=== PATIENT | female | born 1985 | race Caucasian/White ===

== ENCOUNTER 2017-05-02 08:39 | Day surgery (SDC) | payer MEDICAID ==
[~2017-05-02] VITALS: Ht 144.8 cm; Wt 53.1 kg
[~2017-05-02 08:39] MED LIST: ACET325T47 PO; BENZ1TAB70 PO; BISA10SU PR; CARBL PO; DESM10SP2 PO; LEVE500T53 PO; LORA10TA7 GT; LORA1TAB3 PO; LURA40 PO; METO5SOL3 PO; OLAN7.5T2 PO; SODI44SP18 NASAL; VITAD1000 PO; [UNRECOGNIZED DRUG - CODE] PO
[2017-05-02] MEDS ORDERED: PROPOFOL 1% 20 ML VIAL IVP ONE (08:40)
[2017-05-02] MEDS ORDERED: LIDOCAINE HCL/PF 2% 5 ML VIAL IM ONE (08:40)
[2017-05-02] MEDS ORDERED: SODIUM CHLORIDE 0.9% 1,000 ML IV ONE ×2 (09:19→09:30)
== END 2017-05-02 11:50 | disposition home or self-care (01) ==
LOC: SURGERY 08:39
PROVIDERS: ATTEND Internal Medicine Gastroenterology
DX: K94.23 Gastrostomy malfunction (principal); K21.9 Gastro-esophageal reflux disease without esophagitis; F41.9 Anxiety disorder, unspecified; Z86.59 Personal history of other mental and behavioral disorders; Z88.8 Allergy status to other drugs, medicaments and biological substances; Z79.899 Other long term (current) drug therapy
CPT/HCPCS: 36415; 43246; 84703; J2704; J3490; J7030

== ENCOUNTER 2017-12-04 07:54 | Emergency (ER) | payer MEDICAID ==
[~2017-12-04] VITALS: Ht 149.9 cm; Wt 81.8 kg
[2017-12-04] MEDS ORDERED: SODIUM CHLORIDE 0.9% 1,000 ML IV ONE (08:45)
[2017-12-04] MEDS ORDERED: ONDANSETRON HCL 4 MG/2 ML VIAL IVP ONE (08:45)
[2017-12-04 09:27] LABS: BASOPHILS % (AUTO) 0.3 % (0.0-2.0); EOSINOPHILS % (AUTO) 0 % (1.0-6.0); HEMATOCRIT 41.7 % (36-46); HEMOGLOBIN 14.5 g/dL (12.0-16.0); LYMPHOCYTES # (AUTO) 1.2 K/uL (1.0-4.8); MEAN CORPUSCULAR HEMOGLOBIN 31.5 pg (26.0-34.0); MEAN CORPUSCULAR HGB CONC 34.8 G/dL (31.0-37.0); MEAN CORPUSCULAR VOLUME 90 fL (80-100); MONOCYTES # (AUTO) 0.9 K/uL (0.1-1.0); MONOCYTES % (AUTO) 3.9 % (2.0-9.0); NEUTROPHILS # (AUTO) 21.5 K/uL (1.8-7.7); PLATELET COUNT (AUTO) 325 K/uL (150-450); RED BLOOD CELL COUNT(AUTO) 4.61 MIL/uL (4.00-5.20); RED CELL DISTRIBUTION WIDTH 12.5 % (11.5-14.5)
[2017-12-04 09:29] LABS: NEUTROPHILS % (AUTO) 90.8 % (40.0-70.0)
[2017-12-04 09:36] LABS: ANION GAP 11 mmol/L (8-16); CALCIUM, TOTAL 9.5 mg/dL (8.8-10.5); CARBON DIOXIDE 26 mmol/L (22-29); CHLORIDE 96 mmol/L (98-107); CREATININE 0.81 mg/dL (0.60-1.30); GLOMERULAR FILTR. RATE CALC > 60 mL/min (>60); GLUCOSE,RANDOM 136 mg/dL (70-110); SODIUM SERUM 133 mmol/L (136-145); UREA NITROGEN, BLOOD 12 mg/dL (7-18)
[2017-12-04 09:47] LABS: ALANINE AMINOTRANSFERASE 45 U/L (12-78); ALBUMIN 4.3 g/dL (3.4-5.0); ALKALINE PHOSPHATASE 108 U/L (46-116); ASPARTATE AMINOTRANSFERASE 22 U/L (15-37); BILIRUBIN,TOTAL 0.4 mg/dL (0.1-1.0); HCG,QUANTITATIVE < 1 mIU/mL (0-6); LIPASE 144 U/L (73-393); TOTAL PROTEIN, SERUM 8.6 g/dL (6.4-8.2)
[2017-12-04] MEDS ORDERED: LORazepam 2 MG/ML VIAL IVP ONE (10:15)
[2017-12-04 11:21] LABS: APPEARANCE,URINE CLEAR (CLEAR); BILIRUBIN,URINE NEGATIVE (NEGATIVE); GLUCOSE, URINE (UA) 100 mg/dL (NEGATIVE); KETONES,URINE NEGATIVE (NEGATIVE); LEUKOCYTE ESTERASE ,URINE NEGATIVE (NEGATIVE); NITRATE,URINE NEGATIVE (NEGATIVE); OCCULT BLOOD,URINE NEGATIVE (NEGATIVE); PROTEIN,URINE NEGATIVE (NEGATIVE); UROBILINOGEN,URINE 0.2 mg/dL (<=1.0)
[2017-12-04 11:33] LABS: BACTERIA,URINE None Seen /HPF (None Seen); RBC,URINE None Seen /HPF (0-2); WBC,URINE 0-2 /HPF (0-5)
[2017-12-04 11:34] LABS: SQUAMOUS EPITHELIAL CELL,UR Few /LPF (None Seen)
[2017-12-04 12:46] VITALS: BP 116/71
== END 2017-12-04 13:05 | disposition home or self-care (01) ==
LOC: EMS 07:55
DX: D72.829 Elevated white blood cell count, unspecified (principal); R33.9 Retention of urine, unspecified; R53.81 Other malaise; R14.0 Abdominal distension (gaseous); R11.10 Vomiting, unspecified; Z88.8 Allergy status to other drugs, medicaments and biological substances
CPT/HCPCS: 36415; 51702; 74022; 74181; 80053; 81001; 83690; 84702; 85025; 96361; 96374; 96375; 99285; J2060; J2405; J7030

== ENCOUNTER 2018-11-08 23:15 | Inpatient (IN) | payer MEDICAID ==
[~2018-11-08] VITALS: Ht 154.9 cm; Wt 55.5 kg
[~2018-11-08 23:15] MED LIST changes: -ACET325T47 PO; -BISA10SU PR; +CHOL100018 PO; +CLOT15CR62 TP; +DDAV1 PO; -DESM10SP2 PO; +LEVO250 GT; +LORA-999 PO; -LORA1TAB3 PO; +OLAN5TAB2 PO; -OLAN7.5T2 PO; +OMEP20 PO; -SODI44SP18 NASAL; -VITAD1000 PO; -[UNRECOGNIZED DRUG - CODE] PO
[2018-11-08] MEDS ORDERED: LURA20TA PO (23:39)
[2018-11-09] MEDS ORDERED: 0.9% SODIUM CHLORIDE 10 ML SYRINGE IVP PRN (04:00)
[2018-11-09] MEDS ORDERED: PANTOPRAZOLE SODIUM 40 MG/VIAL IVP ONE (04:15)
[2018-11-09] MEDS ORDERED: SODIUM CHLORIDE 0.9% 1,600 ML IV ONE (04:15)
[2018-11-09] MEDS ORDERED: CefTRIAXone 1 GM/DEXTROSE 50 ML IV ONE (04:15)
[2018-11-09] MEDS ORDERED: ONDANSETRON HCL 4 MG/2 ML VIAL IVP ONE (04:15)
[2018-11-09 04:50] LABS: HEMATOCRIT 32.8 % (36-46); HEMOGLOBIN 11.3 g/dL (12.0-16.0); MEAN CORPUSCULAR HEMOGLOBIN 30.7 pg (26.0-34.0); MEAN CORPUSCULAR HGB CONC 34.5 G/dL (31.0-37.0); MEAN CORPUSCULAR VOLUME 89 fL (80-100); PLATELET COUNT (AUTO) 462 K/uL (150-450); RED BLOOD CELL COUNT(AUTO) 3.69 MIL/uL (4.00-5.20)
[2018-11-09 04:52] LABS: OCCULT BLOOD,GASTRIC FLUID POSITIVE (NEGATIVE)
[2018-11-09 05:09] LABS: BAND NEUTROPHILS % (MANUAL) 10 % (0-5); LYMPHOCYTES % (MANUAL) 4 % (22-44); MONOCYTES % (MANUAL) 1 % (2-9); SEGMENTED NEUTROPHILS % 85 % (40-70)
[2018-11-09 05:12] LABS: ALANINE AMINOTRANSFERASE 30 U/L (12-78); ALBUMIN 4.2 g/dL (3.4-5.0); ALKALINE PHOSPHATASE 110 U/L (46-116); ANION GAP 12 mmol/L (8-16); ASPARTATE AMINOTRANSFERASE 24 U/L (15-37); BILIRUBIN,TOTAL 0.3 mg/dL (0.1-1.0); CARBON DIOXIDE 22 mmol/L (22-29); CHLORIDE 96 mmol/L (98-107); CREATININE 0.87 mg/dL (0.60-1.30); GLOMERULAR FILTR. RATE CALC > 60 mL/min (>60); GLUCOSE,RANDOM 158 mg/dL (70-110); HCG,QUANTITATIVE < 1 mIU/mL (0-6); LACTIC ACID 2.9 mmol/L (0.4-2.0); POTASSIUM 4.2 mmol/L (3.5-5.1); SODIUM SERUM 130 mmol/L (136-145); TOTAL PROTEIN, SERUM 8.5 g/dL (6.4-8.2)
[2018-11-09] MEDS ORDERED: AZITHROMYCIN 500 MG/NS 250 ML IV ONE (05:15)
[2018-11-09] MEDS ORDERED: IOVERSOL 350 MG/ML 100 ML VIAL ONE (05:16)
[2018-11-09 05:19] LABS: UREA NITROGEN, BLOOD 15 mg/dL (7-18)
[2018-11-09 05:28] LABS: APPEARANCE,URINE CLEAR (CLEAR); BILIRUBIN,URINE NEGATIVE (NEGATIVE); GLUCOSE, URINE (UA) 100 mg/dL (NEGATIVE); KETONES,URINE NEGATIVE (NEGATIVE); LEUKOCYTE ESTERASE ,URINE NEGATIVE (NEGATIVE); NITRATE,URINE NEGATIVE (NEGATIVE); OCCULT BLOOD,URINE NEGATIVE (NEGATIVE); PH,URINE 7.5 (5.0-8.0); PROTEIN,URINE NEGATIVE (NEGATIVE); UROBILINOGEN,URINE 0.2 mg/dL (<=1.0)
[2018-11-09 05:31] LABS: BACTERIA,URINE None Seen /HPF (None Seen); RBC,URINE None Seen /HPF (0-2); SQUAMOUS EPITHELIAL CELL,UR Rare /LPF (None Seen); WBC,URINE 0-2 /HPF (0-5)
[2018-11-09] MEDS ORDERED: SODIUM CHLORIDE 0.9% 1,000 ML IV ONE ×3 (07:00→08:45)
[2018-11-09] MEDS ORDERED: MAGNESIUM HYDROXIDE SUSPENSION 30 ML UDCUP PO PRN (08:30)
[2018-11-09] MEDS: LevETIRAcetam 500 MG TABLET PEG SCH ×2 (09:24→22:17)
[2018-11-09] MEDS: CarBAMazepine 100 MG CHEWABLE TABLET PEG SCH ×2 (09:25→22:17)
[2018-11-09] MEDS: HEPARIN SODIUM,PORCINE 5,000 UNITS/ML VIAL SQ SCH ×2 (09:26→20:27)
[2018-11-09] MEDS: TAMSULOSIN HCL 0.4 MG CAPSULE PO SCH (10:04)
[2018-11-09] MEDS: FAMOTIDINE 20 MG TABLET PO SCH (10:04)
[2018-11-09] MEDS: DOCUSATE SODIUM 100 MG CAPSULE PO SCH ×2 (10:04→22:17)
[2018-11-09 16:00] VITALS: BP 124/81
[2018-11-09 20:13] VITALS: BP 145/89
[2018-11-09] MEDS: ACETAMINOPHEN 325 MG TABLET PO PRN (22:17)
[2018-11-09 23:35] VITALS: BP 150/76
[2018-11-10 05:23] VITALS: BP 120/90
[2018-11-10 06:18] LABS: BASOPHILS % (AUTO) 0.5 % (0.0-2.0); EOSINOPHILS % (AUTO) 0.8 % (1.0-6.0); HEMATOCRIT 34.8 % (36-46); HEMOGLOBIN 11.8 g/dL (12.0-16.0); LYMPHOCYTES # (AUTO) 2.3 K/uL (1.0-4.8); LYMPHOCYTES % (AUTO) 14.2 % (22.0-44.0); MEAN CORPUSCULAR HEMOGLOBIN 30.8 pg (26.0-34.0); MEAN CORPUSCULAR HGB CONC 33.9 G/dL (31.0-37.0); MEAN CORPUSCULAR VOLUME 91 fL (80-100); MONOCYTES # (AUTO) 0.9 K/uL (0.1-1.0); MONOCYTES % (AUTO) 5.6 % (2.0-9.0); NEUTROPHILS % (AUTO) 78.9 % (40.0-70.0); PLATELET COUNT (AUTO) 285 K/uL (150-450); RED BLOOD CELL COUNT(AUTO) 3.82 MIL/uL (4.00-5.20)
[2018-11-10 08:15] VITALS: BP 133/105
[2018-11-10] MEDS: CarBAMazepine 100 MG CHEWABLE TABLET PEG SCH ×2 (09:20→20:17)
[2018-11-10] MEDS: DOCUSATE SODIUM 100 MG CAPSULE PO SCH ×2 (09:20→20:17)
[2018-11-10] MEDS: TAMSULOSIN HCL 0.4 MG CAPSULE PO SCH (09:20)
[2018-11-10] MEDS: HEPARIN SODIUM,PORCINE 5,000 UNITS/ML VIAL SQ SCH ×2 (09:20→20:17)
[2018-11-10] MEDS: LevETIRAcetam 500 MG TABLET PEG SCH ×2 (09:20→20:17)
[2018-11-10] MEDS: FAMOTIDINE 20 MG TABLET PO SCH (09:20)
[2018-11-10] MEDS ORDERED: SODIUM CHLORIDE 0.9% 1,000 ML IV ONE ×2 (10:45→17:00)
[2018-11-10] MEDS ORDERED: METO-296 PO (11:01)
[2018-11-10 11:39] VITALS: BP 117/90
[2018-11-10] MEDS: CefTRIAXone 1 GM/DEXTROSE 50 ML IV SCH (12:27)
[2018-11-10] MEDS: AZITHROMYCIN 500 MG/NS 250 ML IV SCH (13:24)
[2018-11-10] MEDS ORDERED: BISACODYL 10 MG RECTAL RECTAL SUPPOSITORY PR PRN (15:45)
[2018-11-10 15:54] VITALS: BP 178/106
[2018-11-10 20:25] VITALS: BP 136/81
[2018-11-10] MEDS: ACETAMINOPHEN 325 MG TABLET PO PRN (20:37)
[2018-11-11] VITALS (7 sets, daily range): BP systolic 112–159; BP diastolic 51–103
[2018-11-11] MEDS: LevETIRAcetam 500 MG TABLET PEG SCH ×2 (08:05→21:30)
[2018-11-11] MEDS: TAMSULOSIN HCL 0.4 MG CAPSULE PO SCH (08:05)
[2018-11-11] MEDS: CarBAMazepine 100 MG CHEWABLE TABLET PEG SCH ×2 (08:05→21:30)
[2018-11-11] MEDS: DOCUSATE SODIUM 100 MG CAPSULE PO SCH ×2 (08:05→21:30)
[2018-11-11] MEDS: FAMOTIDINE 20 MG TABLET PO SCH (08:06)
[2018-11-11] MEDS: HEPARIN SODIUM,PORCINE 5,000 UNITS/ML VIAL SQ SCH ×2 (08:06→21:30)
[2018-11-11 09:05] LABS: BASOPHILS % (AUTO) 0.3 % (0.0-2.0); EOSINOPHILS % (AUTO) 2.9 % (1.0-6.0); HEMATOCRIT 30.5 % (36-46); HEMOGLOBIN 10.8 g/dL (12.0-16.0); LYMPHOCYTES # (AUTO) 2.5 K/uL (1.0-4.8); LYMPHOCYTES % (AUTO) 23.1 % (22.0-44.0); MEAN CORPUSCULAR HEMOGLOBIN 31.4 pg (26.0-34.0); MEAN CORPUSCULAR HGB CONC 35.3 G/dL (31.0-37.0); MEAN CORPUSCULAR VOLUME 89 fL (80-100); MONOCYTES # (AUTO) 0.5 K/uL (0.1-1.0); NEUTROPHILS # (AUTO) 7.4 K/uL (1.8-7.7); NEUTROPHILS % (AUTO) 68.7 % (40.0-70.0); PLATELET COUNT (AUTO) 248 K/uL (150-450); RED BLOOD CELL COUNT(AUTO) 3.42 MIL/uL (4.00-5.20); RED CELL DISTRIBUTION WIDTH 12.8 % (11.5-14.5)
[2018-11-11 09:15] LABS: ANION GAP 12 mmol/L (8-16); CALCIUM, TOTAL 8.5 mg/dL (8.8-10.5); CARBON DIOXIDE 25 mmol/L (22-29); CHLORIDE 113 mmol/L (98-107); CREATININE 0.53 mg/dL (0.60-1.30); GLOMERULAR FILTR. RATE CALC > 60 mL/min (>60); GLUCOSE,RANDOM 87 mg/dL (70-110); SODIUM SERUM 150 mmol/L (136-145); UREA NITROGEN, BLOOD 10 mg/dL (7-18)
[2018-11-11 09:19] LABS: POTASSIUM 2.8 mmol/L (3.5-5.1)
[2018-11-11] MEDS ORDERED: POTASSIUM CHLORIDE 20 MEQ ER TABLET GT PRN (09:45)
[2018-11-11] MEDS: DEXTROSE 5%-WATER 1,000 ML IV SCH (09:58)
[2018-11-11] MEDS: POTASSIUM CHL 10 MEQ/WATER 50 ML IV PRN ×3 (09:58→21:35)
[2018-11-11] MEDS: CefTRIAXone 1 GM/DEXTROSE 50 ML IV SCH (11:59)
[2018-11-11] MEDS: AZITHROMYCIN 500 MG/NS 250 ML IV SCH (12:54)
[2018-11-11] MEDS ORDERED: SODIUM CHLORIDE 0.9% 1,000 ML IV ONE ×2 (13:36→13:45)
[2018-11-11 14:58] LABS: ANION GAP 12 mmol/L (8-16); CALCIUM, TOTAL 8.2 mg/dL (8.8-10.5); CARBON DIOXIDE 26 mmol/L (22-29); CHLORIDE 112 mmol/L (98-107); CREATININE 0.58 mg/dL (0.60-1.30); GLOMERULAR FILTR. RATE CALC > 60 mL/min (>60); GLUCOSE,RANDOM 82 mg/dL (70-110); POTASSIUM 3.2 mmol/L (3.5-5.1); SODIUM SERUM 150 mmol/L (136-145); UREA NITROGEN, BLOOD 9 mg/dL (7-18)
[2018-11-11] MEDS: ALBUTEROL SULFATE 2.5 MG/0.5 ML NEB SOLUTION NEB PRN (19:55)
[2018-11-11] MEDS: IPRATROPIUM BROMIDE 0.5 MG/2.5 ML NEB SOLUTION NEB PRN (19:55)
[2018-11-11] MEDS: ACETAMINOPHEN 325 MG TABLET PO PRN (21:30)
[2018-11-11] MEDS: LORazepam 2 MG/ML VIAL IVP PRN (21:34)
[2018-11-12] MEDS: POTASSIUM CHL 10 MEQ/WATER 50 ML IV PRN (05:59)
[2018-11-12 06:12] VITALS: BP 149/98
[2018-11-12 08:23] VITALS: BP 141/102
[2018-11-12] MEDS: LevETIRAcetam 500 MG TABLET PEG SCH ×2 (08:36→20:22)
[2018-11-12] MEDS: TAMSULOSIN HCL 0.4 MG CAPSULE PO SCH (08:36)
[2018-11-12] MEDS: DOCUSATE SODIUM 100 MG CAPSULE PO SCH ×2 (08:36→20:22)
[2018-11-12] MEDS: CarBAMazepine 100 MG CHEWABLE TABLET PEG SCH ×2 (08:36→20:21)
[2018-11-12] MEDS: FAMOTIDINE 20 MG TABLET PO SCH (08:36)
[2018-11-12] MEDS: DEXTROSE 5%-WATER 1,000 ML IV SCH (08:37)
[2018-11-12] MEDS: HEPARIN SODIUM,PORCINE 5,000 UNITS/ML VIAL SQ SCH ×2 (08:37→20:22)
[2018-11-12] MEDS: IPRATROPIUM BROMIDE 0.5 MG/2.5 ML NEB SOLUTION NEB PRN (09:00)
[2018-11-12] MEDS: ALBUTEROL SULFATE 2.5 MG/0.5 ML NEB SOLUTION NEB PRN (09:00)
[2018-11-12 10:21] LABS: BASOPHILS % (AUTO) 0.3 % (0.0-2.0); EOSINOPHILS % (AUTO) 1.6 % (1.0-6.0); HEMATOCRIT 30.3 % (36-46); HEMOGLOBIN 10.9 g/dL (12.0-16.0); LYMPHOCYTES # (AUTO) 2.8 K/uL (1.0-4.8); LYMPHOCYTES % (AUTO) 19.6 % (22.0-44.0); MEAN CORPUSCULAR VOLUME 89 fL (80-100); MONOCYTES # (AUTO) 0.6 K/uL (0.1-1.0); MONOCYTES % (AUTO) 3.8 % (2.0-9.0); NEUTROPHILS # (AUTO) 10.7 K/uL (1.8-7.7); NEUTROPHILS % (AUTO) 74.7 % (40.0-70.0); PLATELET COUNT (AUTO) 243 K/uL (150-450); RED BLOOD CELL COUNT(AUTO) 3.41 MIL/uL (4.00-5.20); RED CELL DISTRIBUTION WIDTH 12.9 % (11.5-14.5)
[2018-11-12 10:33] LABS: ANION GAP 8 mmol/L (8-16); CALCIUM, TOTAL 8.8 mg/dL (8.8-10.5); CARBON DIOXIDE 28 mmol/L (22-29); CHLORIDE 108 mmol/L (98-107); CREATININE 0.62 mg/dL (0.60-1.30); GLOMERULAR FILTR. RATE CALC > 60 mL/min (>60); GLUCOSE,RANDOM 106 mg/dL (70-110); SODIUM SERUM 144 mmol/L (136-145); UREA NITROGEN, BLOOD 7 mg/dL (7-18)
[2018-11-12 10:34] LABS: POTASSIUM 2.9 mmol/L (3.5-5.1)
[2018-11-12 11:24] VITALS: BP 123/83
[2018-11-12] MEDS ORDERED: PROPOFOL 1% 20 ML VIAL IVP ONE (12:00)
[2018-11-12] MEDS: CefTRIAXone 1 GM/DEXTROSE 50 ML IV SCH ×2 (16:57→18:50)
[2018-11-12] MEDS: AZITHROMYCIN 500 MG/NS 250 ML IV SCH ×2 (16:57→19:50)
[2018-11-12 19:52] VITALS: BP 161/93
[2018-11-12] MEDS: ACETAMINOPHEN 325 MG TABLET PO PRN (20:21)
[2018-11-12] MEDS: LORazepam 2 MG/ML VIAL IVP PRN (21:12)
[2018-11-12 23:49] VITALS: BP 135/84
[2018-11-13 04:25] VITALS: BP 155/81
[2018-11-13] MEDS: TAMSULOSIN HCL 0.4 MG CAPSULE PO SCH (08:33)
[2018-11-13] MEDS: FAMOTIDINE 20 MG TABLET PO SCH (08:33)
[2018-11-13] MEDS: LevETIRAcetam 500 MG TABLET PEG SCH ×2 (08:33→20:22)
[2018-11-13] MEDS: DOCUSATE SODIUM 100 MG CAPSULE PO SCH ×2 (08:33→20:22)
[2018-11-13] MEDS: CarBAMazepine 100 MG CHEWABLE TABLET PEG SCH ×2 (08:33→20:22)
[2018-11-13] MEDS: HEPARIN SODIUM,PORCINE 5,000 UNITS/ML VIAL SQ SCH ×2 (08:33→20:22)
[2018-11-13] MEDS: ACETAMINOPHEN 325 MG TABLET PO PRN (08:35)
[2018-11-13 09:29] LABS: BASOPHILS % (AUTO) 0.5 % (0.0-2.0); EOSINOPHILS % (AUTO) 3.7 % (1.0-6.0); HEMATOCRIT 34.7 % (36-46); LYMPHOCYTES # (AUTO) 2.1 K/uL (1.0-4.8); LYMPHOCYTES % (AUTO) 14.8 % (22.0-44.0); MEAN CORPUSCULAR HEMOGLOBIN 31.3 pg (26.0-34.0); MEAN CORPUSCULAR HGB CONC 34.5 G/dL (31.0-37.0); MEAN CORPUSCULAR VOLUME 91 fL (80-100); MONOCYTES # (AUTO) 0.7 K/uL (0.1-1.0); MONOCYTES % (AUTO) 4.7 % (2.0-9.0); NEUTROPHILS # (AUTO) 10.6 K/uL (1.8-7.7); NEUTROPHILS % (AUTO) 76.3 % (40.0-70.0); PLATELET COUNT (AUTO) 275 K/uL (150-450); RED BLOOD CELL COUNT(AUTO) 3.82 MIL/uL (4.00-5.20); RED CELL DISTRIBUTION WIDTH 12.9 % (11.5-14.5)
[2018-11-13 09:38] LABS: ANION GAP 8 mmol/L (8-16); CARBON DIOXIDE 29 mmol/L (22-29); CHLORIDE 107 mmol/L (98-107); CREATININE 0.56 mg/dL (0.60-1.30); GLOMERULAR FILTR. RATE CALC > 60 mL/min (>60); GLUCOSE,RANDOM 106 mg/dL (70-110); POTASSIUM 3.6 mmol/L (3.5-5.1); SODIUM SERUM 144 mmol/L (136-145); UREA NITROGEN, BLOOD 11 mg/dL (7-18)
[2018-11-13] MEDS ORDERED: 0.9% SODIUM CHLORIDE 5 ML NEB SOLUTION NEB ONE (09:45)
[2018-11-13] MEDS: IPRATROPIUM BROMIDE 0.5 MG/2.5 ML NEB SOLUTION NEB PRN ×2 (09:49→22:12)
[2018-11-13] MEDS: ALBUTEROL SULFATE 2.5 MG/0.5 ML NEB SOLUTION NEB PRN ×2 (09:50→22:12)
[2018-11-13 10:20] VITALS: BP 147/117
[2018-11-13 10:22] VITALS: BP 147/95
[2018-11-13 11:23] VITALS: BP 141/87
[2018-11-13 15:30] VITALS: BP 139/86
[2018-11-13] MEDS: CefTRIAXone 1 GM/DEXTROSE 50 ML IV SCH (17:46)
[2018-11-13] MEDS: AZITHROMYCIN 500 MG/NS 250 ML IV SCH (17:46)
[2018-11-13] MEDS ORDERED: CefTRIAXone SODIUM 1 GM/VIAL IM SCH (19:00)
[2018-11-13 19:27] VITALS: BP 140/84
[2018-11-14 00:19] VITALS: BP 122/69
[2018-11-14 04:01] VITALS: BP 118/88
[2018-11-14 07:50] VITALS: BP 119/82
[2018-11-14] MEDS: LevETIRAcetam 500 MG TABLET PEG SCH ×2 (09:24→20:47)
[2018-11-14] MEDS: DOCUSATE SODIUM 100 MG CAPSULE PO SCH ×2 (09:25→20:47)
[2018-11-14] MEDS: TAMSULOSIN HCL 0.4 MG CAPSULE PO SCH (09:25)
[2018-11-14] MEDS: FAMOTIDINE 20 MG TABLET PO SCH (09:25)
[2018-11-14] MEDS: CarBAMazepine 100 MG CHEWABLE TABLET PEG SCH ×2 (09:25→20:47)
[2018-11-14] MEDS: HEPARIN SODIUM,PORCINE 5,000 UNITS/ML VIAL SQ SCH ×2 (09:26→20:48)
[2018-11-14 10:55] VITALS: BP 133/98
[2018-11-14] MEDS: AZITHROMYCIN 500 MG/NS 250 ML IV SCH ×2 (12:14→13:00)
[2018-11-14] MEDS: AZITHROMYCIN 250 MG TABLET PO SCH (15:32)
[2018-11-14 15:50] VITALS: BP 149/93
[2018-11-14 20:06] VITALS: BP 143/93
[2018-11-14] MEDS: CefTRIAXone SODIUM 1 GM/VIAL IM SCH (20:50)
[2018-11-14] MEDS: LIDOCAINE/PF 1% 2 ML VIAL IM SCH (20:50)
[2018-11-14] MEDS: ACETAMINOPHEN 325 MG TABLET PO PRN (23:46)
[2018-11-15 00:04] VITALS: BP 133/99
[2018-11-15 05:12] VITALS: BP 156/90
[2018-11-15 07:30] VITALS: BP 142/84
[2018-11-15] MEDS: TAMSULOSIN HCL 0.4 MG CAPSULE PO SCH (08:57)
[2018-11-15] MEDS: CarBAMazepine 100 MG CHEWABLE TABLET PEG SCH ×2 (08:57→21:46)
[2018-11-15] MEDS: AZITHROMYCIN 250 MG TABLET PO SCH (08:57)
[2018-11-15] MEDS: FAMOTIDINE 20 MG TABLET PO SCH (08:57)
[2018-11-15] MEDS: DOCUSATE SODIUM 100 MG CAPSULE PO SCH ×2 (08:58→21:47)
[2018-11-15] MEDS: LevETIRAcetam 500 MG TABLET PEG SCH ×2 (08:58→21:47)
[2018-11-15] MEDS: HEPARIN SODIUM,PORCINE 5,000 UNITS/ML VIAL SQ SCH ×2 (08:58→21:47)
[2018-11-15 10:50] VITALS: BP 136/88
[2018-11-15] MEDS: ALBUTEROL SULFATE 2.5 MG/0.5 ML NEB SOLUTION NEB PRN (11:57)
[2018-11-15] MEDS: IPRATROPIUM BROMIDE 0.5 MG/2.5 ML NEB SOLUTION NEB PRN (11:57)
[2018-11-15 15:06] LABS: BASOPHILS % (AUTO) 0.7 % (0.0-2.0); EOSINOPHILS % (AUTO) 3.4 % (1.0-6.0); HEMATOCRIT 38.9 % (36-46); HEMOGLOBIN 13.1 g/dL (12.0-16.0); LYMPHOCYTES % (AUTO) 25.2 % (22.0-44.0); MEAN CORPUSCULAR HEMOGLOBIN 30.9 pg (26.0-34.0); MEAN CORPUSCULAR HGB CONC 33.7 G/dL (31.0-37.0); MEAN CORPUSCULAR VOLUME 92 fL (80-100); MONOCYTES # (AUTO) 0.7 K/uL (0.1-1.0); MONOCYTES % (AUTO) 5.8 % (2.0-9.0); NEUTROPHILS # (AUTO) 7.8 K/uL (1.8-7.7); NEUTROPHILS % (AUTO) 64.9 % (40.0-70.0); PLATELET COUNT (AUTO) 332 K/uL (150-450); RED BLOOD CELL COUNT(AUTO) 4.25 MIL/uL (4.00-5.20); RED CELL DISTRIBUTION WIDTH 13.2 % (11.5-14.5)
[2018-11-15 15:18] VITALS: BP 142/82
[2018-11-15 15:24] LABS: ANION GAP 9 mmol/L (8-16); CALCIUM, TOTAL 9.4 mg/dL (8.8-10.5); CARBON DIOXIDE 27 mmol/L (22-29); CHLORIDE 105 mmol/L (98-107); CREATININE 0.52 mg/dL (0.60-1.30); GLOMERULAR FILTR. RATE CALC > 60 mL/min (>60); GLUCOSE,RANDOM 108 mg/dL (70-110); POTASSIUM 4.1 mmol/L (3.5-5.1); SODIUM SERUM 141 mmol/L (136-145); UREA NITROGEN, BLOOD 18 mg/dL (7-18)
[2018-11-15 15:28] LABS: ALANINE AMINOTRANSFERASE 78 U/L (12-78); ALBUMIN 3.9 g/dL (3.4-5.0); ALKALINE PHOSPHATASE 96 U/L (46-116); ASPARTATE AMINOTRANSFERASE 73 U/L (15-37); BILIRUBIN,TOTAL 0.3 mg/dL (0.1-1.0)
[2018-11-15 20:16] VITALS: BP 111/91
[2018-11-15] MEDS: LIDOCAINE/PF 1% 2 ML VIAL IM SCH (21:47)
[2018-11-15] MEDS: CefTRIAXone SODIUM 1 GM/VIAL IM SCH (21:47)
[2018-11-16] VITALS (7 sets, daily range): BP systolic 119–150; BP diastolic 85–96
[2018-11-16 07:27] LABS: BASOPHILS % (AUTO) 0.6 % (0.0-2.0); EOSINOPHILS % (AUTO) 2.9 % (1.0-6.0); HEMATOCRIT 39.2 % (36-46); HEMOGLOBIN 13.3 g/dL (12.0-16.0); LYMPHOCYTES # (AUTO) 2.8 K/uL (1.0-4.8); LYMPHOCYTES % (AUTO) 26.7 % (22.0-44.0); MEAN CORPUSCULAR HEMOGLOBIN 31.3 pg (26.0-34.0); MEAN CORPUSCULAR VOLUME 92 fL (80-100); MONOCYTES # (AUTO) 0.6 K/uL (0.1-1.0); MONOCYTES % (AUTO) 6.1 % (2.0-9.0); NEUTROPHILS # (AUTO) 6.8 K/uL (1.8-7.7); NEUTROPHILS % (AUTO) 63.7 % (40.0-70.0); PLATELET COUNT (AUTO) 355 K/uL (150-450); RED BLOOD CELL COUNT(AUTO) 4.26 MIL/uL (4.00-5.20); RED CELL DISTRIBUTION WIDTH 13.6 % (11.5-14.5)
[2018-11-16 07:43] LABS: ALANINE AMINOTRANSFERASE 105 U/L (12-78); ALBUMIN 3.9 g/dL (3.4-5.0); ALKALINE PHOSPHATASE 98 U/L (46-116); ANION GAP 9 mmol/L (8-16); ASPARTATE AMINOTRANSFERASE 74 U/L (15-37); BILIRUBIN,TOTAL 0.3 mg/dL (0.1-1.0); CALCIUM, TOTAL 9.5 mg/dL (8.8-10.5); CARBON DIOXIDE 28 mmol/L (22-29); CHLORIDE 104 mmol/L (98-107); CREATININE 0.57 mg/dL (0.60-1.30); GLOMERULAR FILTR. RATE CALC > 60 mL/min (>60); GLUCOSE,RANDOM 91 mg/dL (70-110); POTASSIUM 3.9 mmol/L (3.5-5.1); SODIUM SERUM 141 mmol/L (136-145); TOTAL PROTEIN, SERUM 8.2 g/dL (6.4-8.2)
[2018-11-16 07:57] LABS: UREA NITROGEN, BLOOD 21 mg/dL (7-18)
[2018-11-16] MEDS: FAMOTIDINE 20 MG TABLET PO SCH (09:18)
[2018-11-16] MEDS: TAMSULOSIN HCL 0.4 MG CAPSULE PO SCH (09:18)
[2018-11-16] MEDS: LevETIRAcetam 500 MG TABLET PEG SCH ×2 (09:18→20:04)
[2018-11-16] MEDS: AZITHROMYCIN 250 MG TABLET PO SCH (09:18)
[2018-11-16] MEDS: CarBAMazepine 100 MG CHEWABLE TABLET PEG SCH ×2 (09:18→20:04)
[2018-11-16] MEDS: DOCUSATE SODIUM 100 MG CAPSULE PO SCH ×2 (09:19→20:04)
[2018-11-16] MEDS: HEPARIN SODIUM,PORCINE 5,000 UNITS/ML VIAL SQ SCH ×2 (09:19→20:03)
[2018-11-16] MEDS: CefTRIAXone SODIUM 1 GM/VIAL IM SCH (20:03)
[2018-11-16] MEDS: LIDOCAINE/PF 1% 2 ML VIAL IM SCH (20:03)
[2018-11-17 05:37] VITALS: BP 145/94
[2018-11-17 06:24] LABS: BASOPHILS % (AUTO) 0.6 % (0.0-2.0); EOSINOPHILS % (AUTO) 2.4 % (1.0-6.0); HEMATOCRIT 39.9 % (36-46); HEMOGLOBIN 13.7 g/dL (12.0-16.0); LYMPHOCYTES # (AUTO) 3.1 K/uL (1.0-4.8); LYMPHOCYTES % (AUTO) 29.4 % (22.0-44.0); MEAN CORPUSCULAR HEMOGLOBIN 31.3 pg (26.0-34.0); MEAN CORPUSCULAR HGB CONC 34.3 G/dL (31.0-37.0); MEAN CORPUSCULAR VOLUME 92 fL (80-100); MONOCYTES # (AUTO) 0.7 K/uL (0.1-1.0); MONOCYTES % (AUTO) 6.6 % (2.0-9.0); NEUTROPHILS # (AUTO) 6.5 K/uL (1.8-7.7); PLATELET COUNT (AUTO) 390 K/uL (150-450); RED BLOOD CELL COUNT(AUTO) 4.36 MIL/uL (4.00-5.20); RED CELL DISTRIBUTION WIDTH 13.7 % (11.5-14.5)
[2018-11-17 06:44] LABS: ALANINE AMINOTRANSFERASE 102 U/L (12-78); ALKALINE PHOSPHATASE 100 U/L (46-116); ANION GAP 11 mmol/L (8-16); ASPARTATE AMINOTRANSFERASE 51 U/L (15-37); BILIRUBIN,TOTAL 0.3 mg/dL (0.1-1.0); CALCIUM, TOTAL 9.7 mg/dL (8.8-10.5); CARBON DIOXIDE 27 mmol/L (22-29); CHLORIDE 103 mmol/L (98-107); CREATININE 0.51 mg/dL (0.60-1.30); GLOMERULAR FILTR. RATE CALC > 60 mL/min (>60); GLUCOSE,RANDOM 105 mg/dL (70-110); POTASSIUM 4.3 mmol/L (3.5-5.1); SODIUM SERUM 141 mmol/L (136-145); TOTAL PROTEIN, SERUM 8.3 g/dL (6.4-8.2); UREA NITROGEN, BLOOD 23 mg/dL (7-18)
[2018-11-17 07:40] VITALS: BP 126/84
[2018-11-17 08:01] LABS: GLUCOMETER DEV NAME(LOC) 5S.1; GLUCOSE,POINT OF CARE 87 MG/DL (70-110)
[2018-11-17] MEDS: FAMOTIDINE 20 MG TABLET PO SCH (08:59)
[2018-11-17] MEDS: HEPARIN SODIUM,PORCINE 5,000 UNITS/ML VIAL SQ SCH (08:59)
[2018-11-17] MEDS: AZITHROMYCIN 250 MG TABLET PO SCH (08:59)
[2018-11-17] MEDS: LevETIRAcetam 500 MG TABLET PEG SCH (08:59)
[2018-11-17] MEDS: CarBAMazepine 100 MG CHEWABLE TABLET PEG SCH (09:00)
[2018-11-17] MEDS: DOCUSATE SODIUM 100 MG CAPSULE PO SCH (09:00)
[2018-11-17] MEDS: TAMSULOSIN HCL 0.4 MG CAPSULE PO SCH (09:00)
[2018-11-17] MEDS ORDERED: LEVO750T21 PO (14:46)
[2018-11-18 21:46] LABS: GLUCOMETER DEV NAME(LOC) 5S.2A; GLUCOSE,POINT OF CARE 123 MG/DL (70-110)
[2018-11-18 21:46] LABS: GLUCOMETER DEV NAME(LOC) 5S.2A; GLUCOSE,POINT OF CARE 93 MG/DL (70-110)
== END 2018-11-17 15:15 | disposition home or self-care (01) | DRG 720 ==
LOC: EMS 23:16 → ICU 11-09 12:12 → 5S 11-09 13:09
PROVIDERS: ADMIT Internal Medicine; ATTEND Internal Medicine
PROC: 0D20XUZ Change Feeding Device in Upper Intestinal Tract, External Approach (ICD-10-PCS; principal; 2018-11-11 14:45)
DX: A41.9 Sepsis, unspecified organism (principal); E87.0 Hyperosmolality and hypernatremia; J18.9 Pneumonia, unspecified organism; K92.2 Gastrointestinal hemorrhage, unspecified; E87.1 Hypo-osmolality and hyponatremia; R33.9 Retention of urine, unspecified; E87.6 Hypokalemia; Z88.8 Allergy status to other drugs, medicaments and biological substances; G40.909 Epilepsy, unspecified, not intractable, without status epilepticus; G80.9 Cerebral palsy, unspecified; N31.2 Flaccid neuropathic bladder, not elsewhere classified; R13.10 Dysphagia, unspecified; R09.02 Hypoxemia
CPT/HCPCS: 71250; 74177; 82271; 83605; 84132; 86850; 86900; 86901; 87040; 87081; 87205; 93005; 94640; 94667; 96365; 96375; 99291; C9113; J0456; J0696; J1644; J2060; J2405; J2704; J3480; J3490; J7030; J7060

== ENCOUNTER 2019-07-15 08:25 | Inpatient (IN) | payer MEDICAID ==
[~2019-07-15] VITALS: Ht 157.5 cm; Wt 55.0 kg
[~2019-07-15 08:25] MED LIST changes: +CLOT15CR23 TP; -CLOT15CR62 TP; -LEVO250 GT; +LEVO750T21 PO; -LORA10TA7 GT; +LORA10TA7 PO; +LURA20TA PO; -LURA40 PO; +METO-296 PO; -METO5SOL3 PO
[2019-07-15 09:34] LABS: BASOPHILS % (AUTO) 0.2 % (0.0-2.0); EOSINOPHILS % (AUTO) 0.1 % (1.0-6.0); HEMATOCRIT 42.1 % (36-46); HEMOGLOBIN 14.5 g/dL (12.0-16.0); LYMPHOCYTES # (AUTO) 0.8 K/uL (1.0-4.8); LYMPHOCYTES % (AUTO) 3.3 % (22.0-44.0); MEAN CORPUSCULAR HEMOGLOBIN 30.8 pg (26.0-34.0); MEAN CORPUSCULAR HGB CONC 34.3 G/dL (31.0-37.0); MEAN CORPUSCULAR VOLUME 90 fL (80-100); MONOCYTES # (AUTO) 0.7 K/uL (0.1-1.0); MONOCYTES % (AUTO) 2.9 % (2.0-9.0); NEUTROPHILS % (AUTO) 93.5 % (40.0-70.0); PLATELET COUNT (AUTO) 351 K/uL (150-450); RED CELL DISTRIBUTION WIDTH 12.9 % (11.5-14.5)
[2019-07-15 09:42] LABS: ANION GAP 14 mmol/L (8-16); CALCIUM, TOTAL 9.9 mg/dL (8.8-10.5); CARBON DIOXIDE 25 mmol/L (22-29); CHLORIDE 98 mmol/L (98-107); CREATININE 0.77 mg/dL (0.60-1.30); GLOMERULAR FILTR. RATE CALC > 60 mL/min (>60); GLUCOSE,RANDOM 133 mg/dL (70-110); SODIUM SERUM 137 mmol/L (136-145); UREA NITROGEN, BLOOD 12 mg/dL (7-18)
[2019-07-15 09:52] LABS: LACTIC ACID 2.7 mmol/L (0.4-2.0)
[2019-07-15 09:55] LABS: ALANINE AMINOTRANSFERASE 33 U/L (12-78); ALBUMIN 4.7 g/dL (3.4-5.0); ALKALINE PHOSPHATASE 114 U/L (46-116); ASPARTATE AMINOTRANSFERASE 17 U/L (15-37); BILIRUBIN,TOTAL 0.4 mg/dL (0.1-1.0); HCG,QUANTITATIVE < 1 mIU/mL (0-6); TOTAL PROTEIN, SERUM 8.9 g/dL (6.4-8.2)
[2019-07-15] MEDS ORDERED: DESM0.1T23 PO (10:06)
[2019-07-15] MEDS ORDERED: SODIUM CHLORIDE 0.9% 1,650 ML IV ONE (10:15)
[2019-07-15] MEDS: PIPERACILLIN/TAZO 3.375 GM/D5W 50 ML IV SCH ×3 (11:02→23:39)
[2019-07-15] MEDS ORDERED: VANCOMYCIN HCL 1 GM/D5% WATER 200 ML IV ONE (11:15)
[2019-07-15] MEDS ORDERED: ACETAMINOPHEN 325 MG TABLET PO PRN (11:30)
[2019-07-15] MEDS ORDERED: ONDANSETRON HCL 4 MG/2 ML VIAL IVP PRN ×2 (11:30)
[2019-07-15] MEDS ORDERED: 0.9% SODIUM CHLORIDE 10 ML SYRINGE IVP PRN ×2 (11:30)
[2019-07-15] MEDS ORDERED: IPRATROPIUM BROMIDE 0.5 MG/2.5 ML NEB SOLUTION NEB PRN (11:30)
[2019-07-15] MEDS ORDERED: ALBUTEROL SULFATE 2.5 MG/0.5 ML NEB SOLUTION NEB PRN (11:30)
[2019-07-15 14:32] VITALS: BP 135/85
[2019-07-15] MEDS: UDCUP PO SCH ×2 (16:15→20:53)
[2019-07-15] MEDS: CARBAMAZEPINE 200 MG/10 ML PO SCH ×2 (16:15→20:53)
[2019-07-15] MEDS: SODIUM CHLORIDE 0.9% 1,000 ML IV SCH ×2 (16:16→22:26)
[2019-07-15 16:40] VITALS: BP 140/91
[2019-07-15] MEDS: PANTOPRAZOLE SODIUM 40 MG/VIAL IVP SCH (19:09)
[2019-07-15 19:54] VITALS: BP 128/68
[2019-07-15] MEDS: HEPARIN SODIUM,PORCINE 5,000 UNITS/ML VIAL SQ SCH (20:52)
[2019-07-15] MEDS: ACETAMINOPHEN 325 MG TABLET PO PRN (20:53)
[2019-07-15] MEDS: BENZTROPINE MESYLATE 1 MG TABLET PO SCH (20:53)
[2019-07-15] MEDS: LevETIRAcetam 500 MG TABLET PO SCH (20:53)
[2019-07-15] MEDS: METOCLOPRAMIDE HCL 10 MG TABLET PO SCH (22:22)
[2019-07-15 23:45] VITALS: BP 98/52
[2019-07-16] MEDS: PIPERACILLIN/TAZO 3.375 GM/D5W 50 ML IV SCH ×4 (04:04→23:03)
[2019-07-16 04:11] VITALS: BP 110/70
[2019-07-16] MEDS: SODIUM CHLORIDE 0.9% 1,000 ML IV SCH (07:30)
[2019-07-16 07:37] LABS: BASOPHILS % (AUTO) 0.2 % (0.0-2.0); EOSINOPHILS % (AUTO) 2.3 % (1.0-6.0); HEMATOCRIT 37.1 % (36-46); HEMOGLOBIN 12.3 g/dL (12.0-16.0); LYMPHOCYTES # (AUTO) 2.7 K/uL (1.0-4.8); LYMPHOCYTES % (AUTO) 14.7 % (22.0-44.0); MEAN CORPUSCULAR HEMOGLOBIN 30.4 pg (26.0-34.0); MEAN CORPUSCULAR HGB CONC 33.3 G/dL (31.0-37.0); MEAN CORPUSCULAR VOLUME 92 fL (80-100); MONOCYTES # (AUTO) 1.3 K/uL (0.1-1.0); MONOCYTES % (AUTO) 6.9 % (2.0-9.0); NEUTROPHILS # (AUTO) 13.9 K/uL (1.8-7.7); NEUTROPHILS % (AUTO) 75.9 % (40.0-70.0); PLATELET COUNT (AUTO) 310 K/uL (150-450); RED BLOOD CELL COUNT(AUTO) 4.06 MIL/uL (4.00-5.20); RED CELL DISTRIBUTION WIDTH 13.1 % (11.5-14.5)
[2019-07-16 07:41] VITALS: BP 127/74
[2019-07-16 07:57] LABS: LACTIC ACID 3.6 mmol/L (0.4-2.0)
[2019-07-16 08:00] LABS: ALANINE AMINOTRANSFERASE 33 U/L (12-78); ALBUMIN 3.9 g/dL (3.4-5.0); ALKALINE PHOSPHATASE 87 U/L (46-116); ANION GAP 13 mmol/L (8-16); ASPARTATE AMINOTRANSFERASE 24 U/L (15-37); BILIRUBIN,TOTAL 0.7 mg/dL (0.1-1.0); CALCIUM, TOTAL 8.7 mg/dL (8.8-10.5); CARBON DIOXIDE 27 mmol/L (22-29); CHLORIDE 111 mmol/L (98-107); CREATININE 0.84 mg/dL (0.60-1.30); GLOMERULAR FILTR. RATE CALC > 60 mL/min (>60); GLUCOSE,RANDOM 92 mg/dL (70-110); POTASSIUM 3.4 mmol/L (3.5-5.1); SODIUM SERUM 151 mmol/L (136-145); TOTAL PROTEIN, SERUM 7.4 g/dL (6.4-8.2); UREA NITROGEN, BLOOD 8 mg/dL (7-18)
[2019-07-16] MEDS: SODIUM CHLORIDE 0.45% 1,000 ML IV SCH ×2 (08:49→20:52)
[2019-07-16] MEDS: CHOLECALCIFEROL (VIT D3) 1,000 UNITS [25 MCG] TABLET PO SCH (08:50)
[2019-07-16] MEDS: HEPARIN SODIUM,PORCINE 5,000 UNITS/ML VIAL SQ SCH ×2 (08:50→20:54)
[2019-07-16] MEDS: PANTOPRAZOLE SODIUM 40 MG/VIAL IVP SCH (08:50)
[2019-07-16] MEDS: BENZTROPINE MESYLATE 1 MG TABLET PO SCH ×2 (08:51→20:54)
[2019-07-16] MEDS: LORATADINE 10 MG TABLET GT SCH (08:51)
[2019-07-16] MEDS: METOCLOPRAMIDE HCL 10 MG TABLET PO SCH ×2 (08:51→20:54)
[2019-07-16] MEDS: CARBAMAZEPINE 200 MG/10 ML PO SCH ×3 (08:51→20:53)
[2019-07-16] MEDS: LevETIRAcetam 500 MG TABLET PO SCH ×2 (08:51→20:54)
[2019-07-16] MEDS: UDCUP PO SCH ×3 (08:51→20:53)
[2019-07-16] MEDS: DESMOPRESSIN ACETATE 0.2 MG TABLET PO SCH (08:51)
[2019-07-16] MEDS: OLANZapine 5 MG TABLET PO SCH (08:51)
[2019-07-16] MEDS: LORazepam 0.5 MG TABLET PO SCH (08:52)
[2019-07-16] MEDS: CLOTRIMAZOLE 1% 15 GM CREAM TP SCH (08:52)
[2019-07-16] MEDS: POTASSIUM CHL 10 MEQ/WATER 50 ML IV PRN ×6 (09:41→20:54)
[2019-07-16 11:54] VITALS: BP 140/72
[2019-07-16 15:19] LABS: ANION GAP 10 mmol/L (8-16); CALCIUM, TOTAL 8.7 mg/dL (8.8-10.5); CARBON DIOXIDE 26 mmol/L (22-29); CHLORIDE 109 mmol/L (98-107); CREATININE 0.57 mg/dL (0.60-1.30); GLOMERULAR FILTR. RATE CALC > 60 mL/min (>60); GLUCOSE,RANDOM 109 mg/dL (70-110); POTASSIUM 3.5 mmol/L (3.5-5.1); SODIUM SERUM 145 mmol/L (136-145); UREA NITROGEN, BLOOD 7 mg/dL (7-18)
[2019-07-16 16:26] VITALS: BP 135/91
[2019-07-16 19:42] VITALS: BP 110/62
[2019-07-16 23:33] VITALS: BP 107/71
[2019-07-17 04:30] VITALS: BP 126/91
[2019-07-17] MEDS: PIPERACILLIN/TAZO 3.375 GM/D5W 50 ML IV SCH ×4 (05:27→23:38)
[2019-07-17] MEDS ORDERED: ALBUTEROL SULFATE 2.5 MG/0.5 ML NEB SOLUTION NEB PRN (05:45)
[2019-07-17] MEDS ORDERED: IPRATROPIUM BROMIDE 0.5 MG/2.5 ML NEB SOLUTION NEB PRN (05:45)
[2019-07-17] MEDS ORDERED: VANCOMYCIN HCL 1 GM/D5% WATER 200 ML IV ONE (06:00)
[2019-07-17 07:41] VITALS: BP 132/56
[2019-07-17] MEDS: HEPARIN SODIUM,PORCINE 5,000 UNITS/ML VIAL SQ SCH ×2 (09:00→21:52)
[2019-07-17] MEDS: PANTOPRAZOLE SODIUM 40 MG/VIAL IVP SCH (09:00)
[2019-07-17] MEDS ORDERED: DESMOPRESSIN ACETATE 0.1 MG TABLET PO SCH (09:00)
[2019-07-17] MEDS: LORazepam 0.5 MG TABLET PO SCH (09:00)
[2019-07-17] MEDS: LevETIRAcetam 500 MG TABLET PO SCH ×2 (09:00→21:52)
[2019-07-17] MEDS ORDERED: VANCOMYCIN HCL 500 MG in DEXTROSE 5%-WATER 100 ML IV ONE (09:00)
[2019-07-17] MEDS: UDCUP PO SCH ×3 (09:01→23:38)
[2019-07-17] MEDS: CARBAMAZEPINE 200 MG/10 ML PO SCH ×3 (09:01→23:38)
[2019-07-17] MEDS: CHOLECALCIFEROL (VIT D3) 1,000 UNITS [25 MCG] TABLET PO SCH (09:01)
[2019-07-17] MEDS: METOCLOPRAMIDE HCL 10 MG TABLET PO SCH ×2 (09:01→21:52)
[2019-07-17] MEDS: LORATADINE 10 MG TABLET GT SCH (09:01)
[2019-07-17] MEDS: BENZTROPINE MESYLATE 1 MG TABLET PO SCH ×2 (09:01→21:52)
[2019-07-17] MEDS: DESMOPRESSIN ACETATE 0.2 MG TABLET PO SCH (09:02)
[2019-07-17] MEDS: OLANZapine 5 MG TABLET PO SCH (09:26)
[2019-07-17 11:15] LABS: BASOPHILS % (AUTO) 0.6 % (0.0-2.0); EOSINOPHILS % (AUTO) 3.3 % (1.0-6.0); HEMATOCRIT 30.1 % (36-46); HEMOGLOBIN 10.7 g/dL (12.0-16.0); LYMPHOCYTES # (AUTO) 2.3 K/uL (1.0-4.8); LYMPHOCYTES % (AUTO) 25.1 % (22.0-44.0); MEAN CORPUSCULAR HEMOGLOBIN 32.4 pg (26.0-34.0); MEAN CORPUSCULAR HGB CONC 35.5 G/dL (31.0-37.0); MEAN CORPUSCULAR VOLUME 91 fL (80-100); MONOCYTES # (AUTO) 0.6 K/uL (0.1-1.0); MONOCYTES % (AUTO) 5.9 % (2.0-9.0); NEUTROPHILS # (AUTO) 6.1 K/uL (1.8-7.7); NEUTROPHILS % (AUTO) 65.1 % (40.0-70.0); PLATELET COUNT (AUTO) 222 K/uL (150-450); RED CELL DISTRIBUTION WIDTH 12.9 % (11.5-14.5)
[2019-07-17] MEDS: CLOTRIMAZOLE 1% 15 GM CREAM TP SCH (11:18)
[2019-07-17 11:19] VITALS: BP 138/74
[2019-07-17 11:41] LABS: ALANINE AMINOTRANSFERASE 42 U/L (12-78); ALBUMIN 3.6 g/dL (3.4-5.0); ALKALINE PHOSPHATASE 78 U/L (46-116); ANION GAP 9 mmol/L (8-16); ASPARTATE AMINOTRANSFERASE 30 U/L (15-37); BILIRUBIN,TOTAL 0.5 mg/dL (0.1-1.0); CALCIUM, TOTAL 8.7 mg/dL (8.8-10.5); CARBON DIOXIDE 29 mmol/L (22-29); CHLORIDE 104 mmol/L (98-107); GLOMERULAR FILTR. RATE CALC > 60 mL/min (>60); GLUCOSE,RANDOM 88 mg/dL (70-110); POTASSIUM 3.4 mmol/L (3.5-5.1); SODIUM SERUM 142 mmol/L (136-145); UREA NITROGEN, BLOOD 5 mg/dL (7-18)
[2019-07-17] MEDS: SODIUM CHLORIDE 0.45% 1,000 ML IV SCH ×2 (12:08→14:30)
[2019-07-17] MEDS: POTASSIUM CHL 10 MEQ/WATER 50 ML IV PRN ×3 (13:19→15:56)
[2019-07-17] MEDS ORDERED: VANCOMYCIN HCL 1.5 GM in DEXTROSE 5%-WATER 250 ML IV SCH (15:00)
[2019-07-17 15:38] VITALS: BP 154/100
[2019-07-17] MEDS: VANCOMYCIN HCL 1.25 GM in DEXTROSE 5%-WATER 250 ML IV SCH (16:57)
[2019-07-17 19:52] VITALS: BP 157/91
[2019-07-17 23:17] VITALS: BP 149/80
[2019-07-18] MEDS: VANCOMYCIN HCL 1.25 GM in DEXTROSE 5%-WATER 250 ML IV SCH (00:40)
[2019-07-18] MEDS: SODIUM CHLORIDE 0.45% 1,000 ML IV SCH ×3 (04:38→20:30)
[2019-07-18] MEDS: PIPERACILLIN/TAZO 3.375 GM/D5W 50 ML IV SCH ×3 (04:39→16:42)
[2019-07-18 05:19] VITALS: BP 148/76
[2019-07-18 06:42] LABS: BASOPHILS % (AUTO) 0.3 % (0.0-2.0); EOSINOPHILS % (AUTO) 3.4 % (1.0-6.0); HEMATOCRIT 34.3 % (36-46); HEMOGLOBIN 11.9 g/dL (12.0-16.0); LYMPHOCYTES # (AUTO) 2.2 K/uL (1.0-4.8); LYMPHOCYTES % (AUTO) 17.6 % (22.0-44.0); MEAN CORPUSCULAR HEMOGLOBIN 31.4 pg (26.0-34.0); MEAN CORPUSCULAR HGB CONC 34.7 G/dL (31.0-37.0); MEAN CORPUSCULAR VOLUME 91 fL (80-100); MONOCYTES # (AUTO) 0.8 K/uL (0.1-1.0); MONOCYTES % (AUTO) 6.5 % (2.0-9.0); NEUTROPHILS # (AUTO) 9.1 K/uL (1.8-7.7); NEUTROPHILS % (AUTO) 72.2 % (40.0-70.0); PLATELET COUNT (AUTO) 283 K/uL (150-450); RED BLOOD CELL COUNT(AUTO) 3.78 MIL/uL (4.00-5.20); RED CELL DISTRIBUTION WIDTH 12.7 % (11.5-14.5)
[2019-07-18 07:09] LABS: ANION GAP 11 mmol/L (8-16); CALCIUM, TOTAL 9.6 mg/dL (8.8-10.5); CARBON DIOXIDE 28 mmol/L (22-29); CHLORIDE 106 mmol/L (98-107); CREATININE 0.81 mg/dL (0.60-1.30); GLOMERULAR FILTR. RATE CALC > 60 mL/min (>60); GLUCOSE,RANDOM 98 mg/dL (70-110); POTASSIUM 3.8 mmol/L (3.5-5.1); SODIUM SERUM 145 mmol/L (136-145); UREA NITROGEN, BLOOD 6 mg/dL (7-18)
[2019-07-18 07:38] VITALS: BP 149/86
[2019-07-18 07:43] LABS: VANCOMYCIN,RANDOM 56.6 mcg/mL (25.0-50.0)
[2019-07-18] MEDS: DESMOPRESSIN ACETATE 0.2 MG TABLET PO SCH (10:27)
[2019-07-18] MEDS: PANTOPRAZOLE SODIUM 40 MG/VIAL IVP SCH (10:28)
[2019-07-18] MEDS: HEPARIN SODIUM,PORCINE 5,000 UNITS/ML VIAL SQ SCH ×2 (10:28→22:13)
[2019-07-18] MEDS: CHOLECALCIFEROL (VIT D3) 1,000 UNITS [25 MCG] TABLET PO SCH (10:28)
[2019-07-18] MEDS: LORATADINE 10 MG TABLET GT SCH (10:29)
[2019-07-18] MEDS: OLANZapine 5 MG TABLET PO SCH (10:29)
[2019-07-18] MEDS: LevETIRAcetam 500 MG TABLET PO SCH ×2 (10:29→22:16)
[2019-07-18] MEDS: CLOTRIMAZOLE 1% 15 GM CREAM TP SCH (10:29)
[2019-07-18] MEDS: BENZTROPINE MESYLATE 1 MG TABLET PO SCH ×2 (10:29→22:13)
[2019-07-18] MEDS: CARBAMAZEPINE 200 MG/10 ML PO SCH ×3 (10:29→22:13)
[2019-07-18] MEDS: METOCLOPRAMIDE HCL 10 MG TABLET PO SCH ×2 (10:29→22:12)
[2019-07-18] MEDS: UDCUP PO SCH ×3 (10:29→22:13)
[2019-07-18] MEDS: LORazepam 0.5 MG TABLET PO SCH (10:29)
[2019-07-18 11:12] VITALS: BP 149/86
[2019-07-18 15:23] VITALS: BP 150/93
[2019-07-18 20:03] VITALS: BP 131/65
[2019-07-18] MEDS: VANCOMYCIN HCL 750 MG in DEXTROSE 5%-WATER 250 ML IV SCH (22:13)
[2019-07-19] VITALS (7 sets, daily range): BP systolic 115–150; BP diastolic 74–95
[2019-07-19] MEDS: PIPERACILLIN/TAZO 3.375 GM/D5W 50 ML IV SCH ×4 (00:44→17:01)
[2019-07-19] MEDS: SODIUM CHLORIDE 0.45% 1,000 ML IV SCH (05:15)
[2019-07-19] MEDS: OLANZapine 5 MG TABLET PO SCH (08:43)
[2019-07-19] MEDS: LORATADINE 10 MG TABLET GT SCH (08:43)
[2019-07-19] MEDS: LevETIRAcetam 500 MG TABLET PO SCH ×2 (08:44→20:31)
[2019-07-19] MEDS: CHOLECALCIFEROL (VIT D3) 1,000 UNITS [25 MCG] TABLET PO SCH (08:45)
[2019-07-19] MEDS: METOCLOPRAMIDE HCL 10 MG TABLET PO SCH ×2 (08:46→20:31)
[2019-07-19] MEDS: BENZTROPINE MESYLATE 1 MG TABLET PO SCH ×2 (08:46→20:31)
[2019-07-19] MEDS: DESMOPRESSIN ACETATE 0.2 MG TABLET PO SCH (08:47)
[2019-07-19] MEDS: PANTOPRAZOLE SODIUM 40 MG/VIAL IVP SCH (08:49)
[2019-07-19] MEDS: CARBAMAZEPINE 200 MG/10 ML PO SCH ×3 (08:50→20:32)
[2019-07-19] MEDS: UDCUP PO SCH ×3 (08:50→20:32)
[2019-07-19] MEDS: LORazepam 0.5 MG TABLET PO SCH (08:52)
[2019-07-19] MEDS: HEPARIN SODIUM,PORCINE 5,000 UNITS/ML VIAL SQ SCH ×2 (08:52→20:32)
[2019-07-19 09:15] LABS: BASOPHILS % (AUTO) 0.6 % (0.0-2.0); EOSINOPHILS % (AUTO) 3.2 % (1.0-6.0); HEMATOCRIT 38.7 % (36-46); HEMOGLOBIN 13.2 g/dL (12.0-16.0); LYMPHOCYTES # (AUTO) 1.9 K/uL (1.0-4.8); LYMPHOCYTES % (AUTO) 17.6 % (22.0-44.0); MEAN CORPUSCULAR HEMOGLOBIN 31.2 pg (26.0-34.0); MEAN CORPUSCULAR HGB CONC 34.2 G/dL (31.0-37.0); MEAN CORPUSCULAR VOLUME 91 fL (80-100); MONOCYTES # (AUTO) 0.9 K/uL (0.1-1.0); MONOCYTES % (AUTO) 8.2 % (2.0-9.0); NEUTROPHILS # (AUTO) 7.4 K/uL (1.8-7.7); NEUTROPHILS % (AUTO) 70.4 % (40.0-70.0); PLATELET COUNT (AUTO) 306 K/uL (150-450); RED BLOOD CELL COUNT(AUTO) 4.25 MIL/uL (4.00-5.20)
[2019-07-19 09:28] LABS: ANION GAP 12 mmol/L (8-16); CALCIUM, TOTAL 9.9 mg/dL (8.8-10.5); CARBON DIOXIDE 31 mmol/L (22-29); CHLORIDE 111 mmol/L (98-107); CREATININE 0.74 mg/dL (0.60-1.30); GLOMERULAR FILTR. RATE CALC > 60 mL/min (>60); GLUCOSE,RANDOM 107 mg/dL (70-110); POTASSIUM 3.9 mmol/L (3.5-5.1); SODIUM SERUM 154 mmol/L (136-145); UREA NITROGEN, BLOOD 9 mg/dL (7-18)
[2019-07-19] MEDS: VANCOMYCIN HCL 750 MG in DEXTROSE 5%-WATER 250 ML IV SCH (10:53)
[2019-07-19] MEDS ORDERED: BENZ1TAB10 PO (12:48)
[2019-07-19] MEDS ORDERED: CHOL100018 PO (12:48)
[2019-07-19 14:36] LABS: ANION GAP 11 mmol/L (8-16); CALCIUM, TOTAL 9.7 mg/dL (8.8-10.5); CARBON DIOXIDE 29 mmol/L (22-29); CHLORIDE 110 mmol/L (98-107); GLOMERULAR FILTR. RATE CALC > 60 mL/min (>60); GLUCOSE,RANDOM 130 mg/dL (70-110); POTASSIUM 4.6 mmol/L (3.5-5.1); SODIUM SERUM 150 mmol/L (136-145); UREA NITROGEN, BLOOD 12 mg/dL (7-18)
[2019-07-20] MEDS: PIPERACILLIN/TAZO 3.375 GM/D5W 50 ML IV SCH ×4 (00:04→16:38)
[2019-07-20 05:39] VITALS: BP 135/92
[2019-07-20] MEDS: CHOLECALCIFEROL (VIT D3) 1,000 UNITS [25 MCG] TABLET PO SCH (08:10)
[2019-07-20 08:11] LABS: BASOPHILS % (AUTO) 0.5 % (0.0-2.0); EOSINOPHILS % (AUTO) 3.5 % (1.0-6.0); HEMATOCRIT 39.8 % (36-46); HEMOGLOBIN 13.4 g/dL (12.0-16.0); LYMPHOCYTES % (AUTO) 17.1 % (22.0-44.0); MEAN CORPUSCULAR HEMOGLOBIN 31.3 pg (26.0-34.0); MEAN CORPUSCULAR HGB CONC 33.7 G/dL (31.0-37.0); MEAN CORPUSCULAR VOLUME 93 fL (80-100); MONOCYTES % (AUTO) 8.5 % (2.0-9.0); NEUTROPHILS # (AUTO) 8.4 K/uL (1.8-7.7); NEUTROPHILS % (AUTO) 70.4 % (40.0-70.0); PLATELET COUNT (AUTO) 302 K/uL (150-450); RED BLOOD CELL COUNT(AUTO) 4.29 MIL/uL (4.00-5.20); RED CELL DISTRIBUTION WIDTH 12.8 % (11.5-14.5)
[2019-07-20] MEDS: LORazepam 0.5 MG TABLET PO SCH (08:11)
[2019-07-20] MEDS: HEPARIN SODIUM,PORCINE 5,000 UNITS/ML VIAL SQ SCH ×2 (08:11→20:30)
[2019-07-20] MEDS: BENZTROPINE MESYLATE 1 MG TABLET PO SCH ×2 (08:11→20:28)
[2019-07-20] MEDS: LORATADINE 10 MG TABLET GT SCH (08:11)
[2019-07-20] MEDS: LevETIRAcetam 500 MG TABLET PO SCH ×2 (08:11→20:28)
[2019-07-20] MEDS: UDCUP PO SCH ×3 (08:12→20:29)
[2019-07-20] MEDS: DESMOPRESSIN ACETATE 0.2 MG TABLET PO SCH (08:12)
[2019-07-20] MEDS: CARBAMAZEPINE 200 MG/10 ML PO SCH ×3 (08:12→20:29)
[2019-07-20] MEDS: PANTOPRAZOLE SODIUM 40 MG/VIAL IVP SCH (08:12)
[2019-07-20] MEDS: OLANZapine 5 MG TABLET PO SCH (08:13)
[2019-07-20] MEDS: METOCLOPRAMIDE HCL 10 MG TABLET PO SCH ×2 (08:13→20:28)
[2019-07-20 08:24] LABS: ANION GAP 13 mmol/L (8-16); CALCIUM, TOTAL 10.2 mg/dL (8.8-10.5); CARBON DIOXIDE 29 mmol/L (22-29); CHLORIDE 110 mmol/L (98-107); CREATININE 0.92 mg/dL (0.60-1.30); GLOMERULAR FILTR. RATE CALC > 60 mL/min (>60); GLUCOSE,RANDOM 110 mg/dL (70-110); POTASSIUM 4.1 mmol/L (3.5-5.1); SODIUM SERUM 152 mmol/L (136-145); UREA NITROGEN, BLOOD 14 mg/dL (7-18)
[2019-07-20 08:42] VITALS: BP 148/88
[2019-07-20] MEDS: CLOTRIMAZOLE 1% 15 GM CREAM TP SCH (09:00)
[2019-07-20 11:10] VITALS: BP 134/54
[2019-07-20 16:40] VITALS: BP 126/93
[2019-07-20] MEDS: DEXTROSE 5%-WATER 1,000 ML IV SCH (18:28)
[2019-07-20] MEDS ORDERED: DESMOPRESSIN ACETATE 0.1 MG TABLET PO SCH (19:00)
[2019-07-20 20:22] VITALS: BP 139/99
[2019-07-21 00:15] VITALS: BP 144/81
[2019-07-21 05:03] VITALS: BP 117/91
[2019-07-21] MEDS ORDERED: CEFEPIME HCL 1 GM in DEXTROSE 5%-WATER 50 ML IV SCH (06:00)
[2019-07-21 08:28] VITALS: BP 164/97
[2019-07-21] MEDS: LORATADINE 10 MG TABLET GT SCH (08:50)
[2019-07-21] MEDS: OLANZapine 5 MG TABLET PO SCH (08:50)
[2019-07-21] MEDS: HEPARIN SODIUM,PORCINE 5,000 UNITS/ML VIAL SQ SCH ×2 (08:50→20:10)
[2019-07-21] MEDS: BENZTROPINE MESYLATE 1 MG TABLET PO SCH ×2 (08:50→20:10)
[2019-07-21] MEDS: CHOLECALCIFEROL (VIT D3) 1,000 UNITS [25 MCG] TABLET PO SCH (08:50)
[2019-07-21] MEDS: LORazepam 0.5 MG TABLET PO SCH (08:50)
[2019-07-21] MEDS: PANTOPRAZOLE SODIUM 40 MG/VIAL IVP SCH (08:50)
[2019-07-21] MEDS: CARBAMAZEPINE 200 MG/10 ML PO SCH ×3 (08:51→20:10)
[2019-07-21] MEDS: LevETIRAcetam 500 MG TABLET PO SCH ×2 (08:51→20:10)
[2019-07-21] MEDS: UDCUP PO SCH ×3 (08:51→20:10)
[2019-07-21] MEDS: METOCLOPRAMIDE HCL 10 MG TABLET PO SCH ×2 (08:51→20:10)
[2019-07-21] MEDS: CLOTRIMAZOLE 1% 15 GM CREAM TP SCH (08:54)
[2019-07-21 08:58] LABS: BASOPHILS % (AUTO) 0.6 % (0.0-2.0); EOSINOPHILS % (AUTO) 2.9 % (1.0-6.0); HEMATOCRIT 41.2 % (36-46); HEMOGLOBIN 14.3 g/dL (12.0-16.0); LYMPHOCYTES # (AUTO) 2.4 K/uL (1.0-4.8); LYMPHOCYTES % (AUTO) 17.6 % (22.0-44.0); MEAN CORPUSCULAR HEMOGLOBIN 31.8 pg (26.0-34.0); MEAN CORPUSCULAR HGB CONC 34.6 G/dL (31.0-37.0); MEAN CORPUSCULAR VOLUME 92 fL (80-100); MONOCYTES % (AUTO) 7.1 % (2.0-9.0); NEUTROPHILS # (AUTO) 9.6 K/uL (1.8-7.7); NEUTROPHILS % (AUTO) 71.8 % (40.0-70.0); PLATELET COUNT (AUTO) 316 K/uL (150-450); RED BLOOD CELL COUNT(AUTO) 4.48 MIL/uL (4.00-5.20); RED CELL DISTRIBUTION WIDTH 13.1 % (11.5-14.5)
[2019-07-21 09:15] LABS: ANION GAP 8 mmol/L (8-16); CALCIUM, TOTAL 10.5 mg/dL (8.8-10.5); CARBON DIOXIDE 31 mmol/L (22-29); CHLORIDE 109 mmol/L (98-107); CREATININE 0.75 mg/dL (0.60-1.30); GLOMERULAR FILTR. RATE CALC > 60 mL/min (>60); GLUCOSE,RANDOM 122 mg/dL (70-110); PHOSPHORUS 4.4 mg/dL (2.5-4.9); POTASSIUM 4.5 mmol/L (3.5-5.1); SODIUM SERUM 148 mmol/L (136-145); UREA NITROGEN, BLOOD 14 mg/dL (7-18)
[2019-07-21] MEDS ORDERED: *CLINICAL-LEVOFLOXACIN IVPB DOSING CLINICAL ONE (10:15)
[2019-07-21] MEDS: CLINDAMYCIN 600 MG/D5% WATER 50 ML IV SCH ×3 (12:00→19:41)
[2019-07-21 12:18] VITALS: BP 134/92
[2019-07-21] MEDS: DESMOPRESSIN ACETATE 0.2 MG TABLET PO SCH (13:29)
[2019-07-21] MEDS: DEXTROSE 5%-WATER 1,000 ML IV SCH (13:35)
[2019-07-21 15:33] VITALS: BP 134/85
[2019-07-21] MEDS: LEVOFLOXACIN 500 MG/D5% WATER 100 ML IV SCH (18:05)
[2019-07-21 19:50] VITALS: BP 126/103
[2019-07-21] MEDS: BISACODYL 10 MG RECTAL RECTAL SUPPOSITORY PR PRN (20:10)
[2019-07-21] MEDS: ACETAMINOPHEN 325 MG TABLET PO PRN (20:10)
[2019-07-22 00:20] VITALS: BP 133/85
[2019-07-22 04:22] VITALS: BP 142/71
[2019-07-22] MEDS: CLINDAMYCIN 600 MG/D5% WATER 50 ML IV SCH (04:28)
[2019-07-22 09:23] VITALS: BP 131/88
[2019-07-22 09:39] LABS: BASOPHILS % (AUTO) 0.4 % (0.0-2.0); EOSINOPHILS % (AUTO) 2.3 % (1.0-6.0); HEMATOCRIT 40.8 % (36-46); HEMOGLOBIN 13.6 g/dL (12.0-16.0); LYMPHOCYTES % (AUTO) 12.5 % (22.0-44.0); MEAN CORPUSCULAR HEMOGLOBIN 30.3 pg (26.0-34.0); MEAN CORPUSCULAR HGB CONC 33.3 G/dL (31.0-37.0); MEAN CORPUSCULAR VOLUME 91 fL (80-100); MONOCYTES # (AUTO) 0.9 K/uL (0.1-1.0); MONOCYTES % (AUTO) 5.4 % (2.0-9.0); NEUTROPHILS # (AUTO) 12.5 K/uL (1.8-7.7); NEUTROPHILS % (AUTO) 79.4 % (40.0-70.0); PLATELET COUNT (AUTO) 357 K/uL (150-450); RED BLOOD CELL COUNT(AUTO) 4.48 MIL/uL (4.00-5.20); RED CELL DISTRIBUTION WIDTH 13.2 % (11.5-14.5)
[2019-07-22 09:54] LABS: ANION GAP 14 mmol/L (8-16); CALCIUM, TOTAL 9.8 mg/dL (8.8-10.5); CARBON DIOXIDE 25 mmol/L (22-29); CHLORIDE 101 mmol/L (98-107); CREATININE 0.82 mg/dL (0.60-1.30); GLOMERULAR FILTR. RATE CALC > 60 mL/min (>60); GLUCOSE,RANDOM 175 mg/dL (70-110); POTASSIUM 4.2 mmol/L (3.5-5.1); SODIUM SERUM 140 mmol/L (136-145); UREA NITROGEN, BLOOD 15 mg/dL (7-18)
[2019-07-22] MEDS: LORATADINE 10 MG TABLET GT SCH (10:27)
[2019-07-22] MEDS: BENZTROPINE MESYLATE 1 MG TABLET PO SCH ×2 (10:28→20:45)
[2019-07-22] MEDS: LORazepam 0.5 MG TABLET PO SCH (10:28)
[2019-07-22] MEDS: UDCUP PO SCH ×3 (10:28→21:19)
[2019-07-22] MEDS: CARBAMAZEPINE 200 MG/10 ML PO SCH ×3 (10:28→21:19)
[2019-07-22] MEDS: LevETIRAcetam 500 MG TABLET PO SCH ×2 (10:28→20:45)
[2019-07-22] MEDS: DESMOPRESSIN ACETATE 0.2 MG TABLET PO SCH (10:28)
[2019-07-22] MEDS: METOCLOPRAMIDE HCL 10 MG TABLET PO SCH ×2 (10:28→20:45)
[2019-07-22] MEDS: PANTOPRAZOLE SODIUM 40 MG/VIAL IVP SCH (10:28)
[2019-07-22] MEDS: HEPARIN SODIUM,PORCINE 5,000 UNITS/ML VIAL SQ SCH ×2 (10:29→20:47)
[2019-07-22] MEDS: CHOLECALCIFEROL (VIT D3) 1,000 UNITS [25 MCG] TABLET PO SCH (10:29)
[2019-07-22] MEDS: OLANZapine 5 MG TABLET PO SCH (10:29)
[2019-07-22] MEDS: CLOTRIMAZOLE 1% 15 GM CREAM TP SCH (10:29)
[2019-07-22] MEDS ORDERED: SODIUM CHLORIDE 0.9% 250 ML IV ONE (10:48)
[2019-07-22 12:00] VITALS: BP 132/76
[2019-07-22] MEDS: PIPERACILLIN/TAZO 3.375 GM/D5W 50 ML IV SCH ×2 (12:38→18:26)
[2019-07-22] MEDS ORDERED: LORazepam 2 MG/ML VIAL IVP ONE (12:45)
[2019-07-22 16:00] VITALS: BP 109/79
[2019-07-22] MEDS: LEVOFLOXACIN 500 MG/D5% WATER 100 ML IV SCH (17:06)
[2019-07-22 19:30] VITALS: BP 118/78
[2019-07-22] MEDS: DOCUSATE SODIUM 100 MG CAPSULE PO SCH (20:46)
[2019-07-22 23:26] LABS: APPEARANCE,URINE CLEAR (CLEAR); BILIRUBIN,URINE NEGATIVE (NEGATIVE); GLUCOSE, URINE (UA) NEGATIVE (NEGATIVE); KETONES,URINE NEGATIVE (NEGATIVE); LEUKOCYTE ESTERASE ,URINE NEGATIVE (NEGATIVE); NITRATE,URINE NEGATIVE (NEGATIVE); OCCULT BLOOD,URINE NEGATIVE (NEGATIVE); PROTEIN,URINE NEGATIVE (NEGATIVE); UROBILINOGEN,URINE 0.2 mg/dL (<=1.0)
[2019-07-22 23:52] LABS: RBC,URINE None Seen /HPF (0-2)
[2019-07-22 23:53] LABS: BACTERIA,URINE None Seen /HPF (None Seen); SQUAMOUS EPITHELIAL CELL,UR Few /LPF (None Seen); WBC,URINE None Seen /HPF (0-5); YEAST,URINE None Seen /HPF (None Seen)
[2019-07-23] MEDS: PIPERACILLIN/TAZO 3.375 GM/D5W 50 ML IV SCH ×3 (00:04→14:30)
[2019-07-23 00:51] VITALS: BP 134/94
[2019-07-23] MEDS: BISACODYL 10 MG RECTAL RECTAL SUPPOSITORY PR PRN ×2 (02:34→16:26)
[2019-07-23] MEDS: ACETAMINOPHEN 325 MG TABLET PO PRN (02:34)
[2019-07-23] MEDS ORDERED: LORazepam 2 MG/ML VIAL IVP ONE (02:45)
[2019-07-23 03:18] VITALS: BP 131/102
[2019-07-23] MEDS: HEPARIN SODIUM,PORCINE 5,000 UNITS/ML VIAL SQ SCH (08:40)
[2019-07-23] MEDS: PANTOPRAZOLE SODIUM 40 MG/VIAL IVP SCH (08:40)
[2019-07-23] MEDS: LevETIRAcetam 500 MG TABLET PO SCH (08:40)
[2019-07-23] MEDS: DOCUSATE SODIUM 100 MG CAPSULE PO SCH (08:40)
[2019-07-23] MEDS: CHOLECALCIFEROL (VIT D3) 1,000 UNITS [25 MCG] TABLET PO SCH (08:41)
[2019-07-23] MEDS: METOCLOPRAMIDE HCL 10 MG TABLET PO SCH (08:41)
[2019-07-23] MEDS: LORazepam 0.5 MG TABLET PO SCH (08:41)
[2019-07-23] MEDS: DESMOPRESSIN ACETATE 0.2 MG TABLET PO SCH (08:42)
[2019-07-23] MEDS: UDCUP PO SCH ×2 (08:42→16:25)
[2019-07-23] MEDS: CARBAMAZEPINE 200 MG/10 ML PO SCH ×2 (08:42→16:25)
[2019-07-23] MEDS: BENZTROPINE MESYLATE 1 MG TABLET PO SCH (08:49)
[2019-07-23] MEDS: OLANZapine 5 MG TABLET PO SCH (08:50)
[2019-07-23] MEDS: LORATADINE 10 MG TABLET GT SCH (08:50)
[2019-07-23] MEDS: CLOTRIMAZOLE 1% 15 GM CREAM TP SCH (08:56)
[2019-07-23 09:30] LABS: BASOPHILS % (AUTO) 0.6 % (0.0-2.0); EOSINOPHILS % (AUTO) 2.8 % (1.0-6.0); LYMPHOCYTES # (AUTO) 2.5 K/uL (1.0-4.8); MEAN CORPUSCULAR HGB CONC 34.3 G/dL (31.0-37.0); MEAN CORPUSCULAR VOLUME 91 fL (80-100); MONOCYTES % (AUTO) 7.7 % (2.0-9.0); NEUTROPHILS % (AUTO) 69.9 % (40.0-70.0); PLATELET COUNT (AUTO) 317 K/uL (150-450); RED BLOOD CELL COUNT(AUTO) 4.19 MIL/uL (4.00-5.20); RED CELL DISTRIBUTION WIDTH 12.6 % (11.5-14.5)
[2019-07-23 09:39] LABS: ANION GAP 13 mmol/L (8-16); CALCIUM, TOTAL 9.7 mg/dL (8.8-10.5); CARBON DIOXIDE 28 mmol/L (22-29); CHLORIDE 104 mmol/L (98-107); CREATININE 0.77 mg/dL (0.60-1.30); GLOMERULAR FILTR. RATE CALC > 60 mL/min (>60); GLUCOSE,RANDOM 107 mg/dL (70-110); POTASSIUM 3.8 mmol/L (3.5-5.1); SODIUM SERUM 145 mmol/L (136-145); UREA NITROGEN, BLOOD 16 mg/dL (7-18)
[2019-07-23] MEDS ORDERED: LEVO750T21 PO (10:31)
[2019-07-23] MEDS ORDERED: CLIN300C3 PO (10:31)
[2019-07-23 11:50] VITALS: BP 142/86
[2019-07-23 15:53] VITALS: BP 135/65
[2019-07-23] MEDS ORDERED: DEXTROSE 5%-WATER 1,000 ML IV SCH (15:56)
== END 2019-07-23 18:05 | disposition home or self-care (01) | DRG 720 ==
LOC: EMS 08:32 → 5N 11:29 → UNDOADMIN 12:20 → 5N 12:20 → 5S 07-18 17:25
PROVIDERS: ADMIT Internal Medicine; ATTEND Internal Medicine
DX: A41.9 Sepsis, unspecified organism (principal); J69.0 Pneumonitis due to inhalation of food and vomit; E87.2 Acidosis; E44.0 Moderate protein-calorie malnutrition; E87.0 Hyperosmolality and hypernatremia; R13.10 Dysphagia, unspecified; Z93.1 Gastrostomy status; G80.9 Cerebral palsy, unspecified; G40.909 Epilepsy, unspecified, not intractable, without status epilepticus; E55.9 Vitamin D deficiency, unspecified; G83.9 Paralytic syndrome, unspecified; Z20.828 Contact with and (suspected) exposure to other viral communicable diseases
CPT/HCPCS: 71250; 72192; 74022; 74150; 82948; 83605; 83735; 84100; 84132; 84145; 87040; 87205; 93005; 99291; C9113; J0692; J1644; J1956; J2060; J2543; J3370; J3480; J3490; J7030; J7050; J7060

== ENCOUNTER 2020-08-14 09:56 | Emergency (ER) | payer MEDICAID ==
[~2020-08-14] VITALS: Ht 142.2 cm; Wt 59.1 kg
[~2020-08-14 09:56] MED LIST changes: +BENZ1TAB10 PO; -BENZ1TAB70 PO; -CHOL100018 PO; -CLOT15CR23 TP; -LEVO750T21 PO; -LORA10TA7 PO; -OLAN5TAB2 PO; +OLAN5TAB52 PO
[2020-08-14] MEDS ORDERED: CLOTRIMAZOLE 1% 10 ML SOLUTION TP ONE (11:45)
[2020-08-14] MEDS ORDERED: CLOTRIMAZOLE 1% 15 GM CREAM TP ONE (12:00)
[2020-08-14 12:09] LABS: COVID AG,FIA SOURCE NASOPHARYNGEAL
[2020-08-14 12:12] LABS: BASOPHILS % (AUTO) 0.3 % (0.0-2.0); EOSINOPHILS % (AUTO) 3.5 % (1.0-6.0); HEMATOCRIT 40.3 % (36-46); HEMOGLOBIN 13.5 g/dL (12.0-16.0); LYMPHOCYTES # (AUTO) 1.8 K/uL (1.0-4.8); LYMPHOCYTES % (AUTO) 22.8 % (22.0-44.0); MEAN CORPUSCULAR HEMOGLOBIN 30.4 pg (26.0-34.0); MEAN CORPUSCULAR HGB CONC 33.4 G/dL (31.0-37.0); MEAN CORPUSCULAR VOLUME 91 fL (80-100); MONOCYTES # (AUTO) 0.4 K/uL (0.1-1.0); MONOCYTES % (AUTO) 4.8 % (2.0-9.0); NEUTROPHILS # (AUTO) 5.5 K/uL (1.8-7.7); NEUTROPHILS % (AUTO) 68.6 % (40.0-70.0); PLATELET COUNT (AUTO) 317 K/uL (150-450); RED BLOOD CELL COUNT(AUTO) 4.42 MIL/uL (4.00-5.20)
[2020-08-14 12:26] LABS: ANION GAP 8 mmol/L (8-16); CALCIUM, TOTAL 9.8 mg/dL (8.8-10.5); CARBON DIOXIDE 27 mmol/L (22-29); CHLORIDE 106 mmol/L (98-107); GLOMERULAR FILTR. RATE CALC > 60 mL/min (>60); GLUCOSE,RANDOM 93 mg/dL (70-110); SODIUM SERUM 141 mmol/L (136-145); UREA NITROGEN, BLOOD 11 mg/dL (7-18)
[2020-08-14 12:30] VITALS: BP 128/60
[2020-08-14 12:30] LABS: ALANINE AMINOTRANSFERASE 34 U/L (12-78); ALBUMIN 4.1 g/dL (3.4-5.0); ALKALINE PHOSPHATASE 114 U/L (46-116); ASPARTATE AMINOTRANSFERASE 20 U/L (15-37); BILIRUBIN,TOTAL 0.3 mg/dL (0.1-1.0); TOTAL PROTEIN, SERUM 8.3 g/dL (6.4-8.2)
== END 2020-08-14 12:57 | disposition home or self-care (01) ==
LOC: EMS 09:56
DX: K94.23 Gastrostomy malfunction (principal); B37.2 Candidiasis of skin and nail; Z20.822 Contact with and (suspected) exposure to COVID-19; Z88.8 Allergy status to other drugs, medicaments and biological substances
CPT/HCPCS: 80053; 85025; 99283

== ENCOUNTER 2020-09-08 16:02 | Emergency (ER) | payer MEDICAID ==
[~2020-09-08] VITALS: Ht 152.4 cm; Wt 72.7 kg
[2020-09-08 19:40] VITALS: BP 120/87
== END 2020-09-08 19:51 | disposition home or self-care (01) ==
LOC: EMS 16:02
DX: K94.23 Gastrostomy malfunction (principal); Z88.8 Allergy status to other drugs, medicaments and biological substances; Z79.899 Other long term (current) drug therapy
CPT/HCPCS: 99281; Z7502

== ENCOUNTER 2022-01-25 12:33 | Day surgery (SDC) | payer MEDICAID ==
[~2022-01-25] VITALS: Ht 149.9 cm; Wt 59.0 kg
[~2022-01-25 12:33] MED LIST changes: -BENZ1TAB10 PO; +BENZ1TAB96 PO; -DDAV1 PO; +DESM0.1T6 PO; +LEVE500T20 PO; -LEVE500T53 PO; +LIDOCAINE/PF 2% 5 ML VIAL IM ONE; +PROPOFOL 1% 20 ML VIAL IVP ONE; +SODIUM CHLORIDE 0.9% 1,000 ML IV ONE; +SODIUM CHLORIDE 0.9% 1,000 ML ONE
[2022-01-25] MEDS ORDERED: LORA10TA7 PO (13:20)
[2022-01-25] MEDS ORDERED: BENZ1TAB96 PO (13:20)
[2022-01-25] MEDS ORDERED: OMEP20CA12 PO (13:20)
[2022-01-25] MEDS ORDERED: METO10TA3 PO (13:20)
[2022-01-25] MEDS ORDERED: LORA-999 PO (13:20)
[2022-01-25] MEDS ORDERED: OLAN5TAB30 PO (13:20)
[2022-01-25 14:41] LABS: COVID AG,FIA SOURCE NASAL SWAB
== END 2022-01-25 15:45 | disposition home or self-care (01) ==
LOC: SURGERY 12:33
PROVIDERS: ATTEND Internal Medicine Gastroenterology
DX: K94.23 Gastrostomy malfunction (principal); K21.9 Gastro-esophageal reflux disease without esophagitis; F41.9 Anxiety disorder, unspecified; G80.9 Cerebral palsy, unspecified; Z79.899 Other long term (current) drug therapy; Z98.890 Other specified postprocedural states; Z88.8 Allergy status to other drugs, medicaments and biological substances
CPT/HCPCS: 43246; 87426; C1716; C9803; J2704; J3490; J7030

== ENCOUNTER 2022-12-22 20:43 | Inpatient (IN) | payer MEDICAID ==
[~2022-12-22] VITALS: Ht 142.2 cm; Wt 46.0 kg
[~2022-12-22 20:43] MED LIST changes: +BENZ1TAB84 PO; -BENZ1TAB96 PO; +CARB100O10 PO; -CARBL PO; -LIDOCAINE/PF 2% 5 ML VIAL IM ONE; +LORA10TA7 PO; +METO10TA3 PO; +OLAN5TAB30 PO; +OMEP20CA12 PO; -PROPOFOL 1% 20 ML VIAL IVP ONE; -SODIUM CHLORIDE 0.9% 1,000 ML IV ONE; -SODIUM CHLORIDE 0.9% 1,000 ML ONE
[2022-12-22] MEDS ORDERED: ONDANSETRON HCL 4 MG/2 ML VIAL IVP PRN (23:15)
[2022-12-22] MEDS ORDERED: SODIUM CHLORIDE 0.9% 1,000 ML IV ONE (23:15)
[2022-12-22] MEDS ORDERED: ACETAMINOPHEN 325 MG TABLET PO PRN (23:15)
[2022-12-23 01:35] LABS: COVID AG,FIA SOURCE NASAL SWAB
[2022-12-23 01:45] LABS: BASOPHILS % (AUTO) 0.3 % (0.0-2.0); EOSINOPHILS % (AUTO) 3.5 % (1.0-6.0); HEMATOCRIT 37.3 % (36-46); LYMPHOCYTES # (AUTO) 3.4 K/uL (1.0-4.8); LYMPHOCYTES % (AUTO) 23.8 % (22.0-44.0); MEAN CORPUSCULAR HEMOGLOBIN 31.5 pg (26.0-34.0); MEAN CORPUSCULAR HGB CONC 34.9 G/dL (31.0-37.0); MEAN CORPUSCULAR VOLUME 90 fL (80-100); MONOCYTES # (AUTO) 0.6 K/uL (0.1-1.0); MONOCYTES % (AUTO) 4.3 % (2.0-9.0); NEUTROPHILS # (AUTO) 9.7 K/uL (1.8-7.7); NEUTROPHILS % (AUTO) 68.1 % (40.0-70.0); PLATELET COUNT (AUTO) 316 K/uL (150-450); RED BLOOD CELL COUNT(AUTO) 4.14 MIL/uL (4.00-5.20); WHITE BLOOD COUNT (AUTO) 14.3 K/uL (4.5-11.0)
[2022-12-23 01:49] LABS: ANION GAP 8 mmol/L (8-16); CALCIUM, TOTAL 9.3 mg/dL (8.8-10.5); CARBON DIOXIDE 28 mmol/L (22-29); CHLORIDE 104 mmol/L (98-107); CREATININE 0.67 mg/dL (0.60-1.30); GLOMERULAR FILTR. RATE CALC > 60 mL/min (>60); GLUCOSE,RANDOM 103 mg/dL (70-110); POTASSIUM 3.8 mmol/L (3.5-5.1); SODIUM SERUM 140 mmol/L (136-145); UREA NITROGEN, BLOOD 8 mg/dL (7-18)
[2022-12-23 01:53] LABS: SARS-COV2 (COVID) ANTIGEN,FIA Negative (Negative)
[2022-12-23 01:59] LABS: ALANINE AMINOTRANSFERASE 32 U/L (12-78); ALBUMIN 3.9 g/dL (3.4-5.0); ALKALINE PHOSPHATASE 110 U/L (46-116); ASPARTATE AMINOTRANSFERASE 23 U/L (15-37); BILIRUBIN,TOTAL 0.3 mg/dL (0.1-1.0)
[2022-12-23 05:40] VITALS: BP 122/80; PULSE 117; RESP 20; TEMP 98.7
[2022-12-23] MEDS ORDERED: MAGNESIUM HYDROXIDE SUSPENSION 30 ML UDCUP PO PRN (06:00)
[2022-12-23] MEDS ORDERED: HYDROCODONE/ACETAMINOPHEN 5-325 MG TABLET PO PRN (06:00)
[2022-12-23] MEDS ORDERED: BISACODYL 10 MG RECTAL RECTAL SUPPOSITORY PR PRN (06:00)
[2022-12-23] MEDS ORDERED: MORPHINE SULFATE 2 MG/ML SYRINGE IVP PRN (06:00)
[2022-12-23] MEDS ORDERED: ZOLPIDEM TARTRATE 5 MG TABLET PO PRN (06:00)
[2022-12-23] MEDS ORDERED: ONDANSETRON HCL 4 MG/2 ML VIAL IVP PRN (06:00)
[2022-12-23] MEDS ORDERED: ACETAMINOPHEN 325 MG TABLET PO PRN (06:00)
[2022-12-23] MEDS ORDERED: LORazepam 2 MG/ML VIAL IVP PRN (06:00)
[2022-12-23] MEDS: LevETIRAcetam 500 MG in DEXTROSE 5%-WATER 100 ML IV SCH ×2 (06:35→18:18)
[2022-12-23 08:15] VITALS: BP 120/75; PULSE 112; RESP 19; TEMP 98.7
[2022-12-23] MEDS: DOCUSATE SODIUM 100 MG CAPSULE PO SCH ×2 (09:00→19:33)
[2022-12-23] MEDS ORDERED: PANTOPRAZOLE SODIUM 40 MG DR TABLET PO SCH (09:00)
[2022-12-23] MEDS: HEPARIN SODIUM,PORCINE 5,000 UNITS/ML VIAL SQ SCH ×2 (09:19→16:16)
[2022-12-23] MEDS: PANTOPRAZOLE SODIUM 40 MG/VIAL IVP SCH (10:30)
[2022-12-23 16:48] VITALS: BP 116/77; PULSE 108; RESP 19; TEMP 98.6
[2022-12-23 19:49] VITALS: BP 111/77; PULSE 96; RESP 18; TEMP 98.1
[2022-12-24 05:08] VITALS: BP 115/78; PULSE 110; RESP 18; TEMP 98.3
[2022-12-24] MEDS: LevETIRAcetam 500 MG in DEXTROSE 5%-WATER 100 ML IV SCH ×2 (05:33→17:49)
[2022-12-24] MEDS: HEPARIN SODIUM,PORCINE 5,000 UNITS/ML VIAL SQ SCH ×4 (08:00→23:34)
[2022-12-24] MEDS: PANTOPRAZOLE SODIUM 40 MG/VIAL IVP SCH (08:29)
[2022-12-24] MEDS: DOCUSATE SODIUM 100 MG CAPSULE PO SCH ×2 (08:30→19:57)
[2022-12-24 11:15] VITALS: BP 144/99; PULSE 98; RESP 18; TEMP 98.2
[2022-12-24 11:33] LABS: INR 1.1 (0.9-1.1); PROTHROMBIN TIME 11.2 SEC (9.4-11.6)
[2022-12-24 16:16] VITALS: BP 132/95; PULSE 107; RESP 18; TEMP 98.4
[2022-12-24 16:49] VITALS: BP 162/71; PULSE 100
[2022-12-24] MEDS ORDERED: IODIXANOL 320 MG/ML 50 ML VIAL ONE (17:00)
[2022-12-24 17:24] VITALS: BP 132/76; PULSE 106
[2022-12-24 20:59] VITALS: BP 133/88; PULSE 96; RESP 18; TEMP 98.9
[2022-12-25 04:51] VITALS: BP 129/85; PULSE 91; RESP 18; TEMP 97.6
[2022-12-25] MEDS: LevETIRAcetam 500 MG in DEXTROSE 5%-WATER 100 ML IV SCH (05:32)
[2022-12-25] MEDS: PANTOPRAZOLE SODIUM 40 MG/VIAL IVP SCH (08:40)
[2022-12-25] MEDS: DOCUSATE SODIUM 100 MG CAPSULE PO SCH (08:40)
[2022-12-25] MEDS: HEPARIN SODIUM,PORCINE 5,000 UNITS/ML VIAL SQ SCH (08:40)
== END 2022-12-25 15:10 | disposition home or self-care (01) | DRG 252 ==
LOC: EMS 20:45 → 6S 12-23 00:30
PROVIDERS: ADMIT Internal Medicine; ATTEND Internal Medicine
PROC: 0D20XUZ Change Feeding Device in Upper Intestinal Tract, External Approach (ICD-10-PCS; principal; 2022-12-24)
DX: K94.23 Gastrostomy malfunction (principal); E23.2 Diabetes insipidus; G82.20 Paraplegia, unspecified; G40.909 Epilepsy, unspecified, not intractable, without status epilepticus; Z20.822 Contact with and (suspected) exposure to COVID-19; Y83.3 Surgical operation with formation of external stoma as the cause of abnormal reaction of the patient, or of later complication, without mention of misadventure at the time of the procedure; Y92.89 Other specified places as the place of occurrence of the external cause; Z79.899 Other long term (current) drug therapy; Z88.8 Allergy status to other drugs, medicaments and biological substances
CPT/HCPCS: 49440; 80053; 83036; 85025; 85610; 87081; 99285; C9113; J0712; J1644; J2060; J7030; J7060; Q9967

== ENCOUNTER → 2023-12-19 | Day surgery (SDC) | payer OTHER, MEDICAID ==
[~2023-12-19] VITALS: Ht 152.4 cm; Wt 52.3 kg
[~2023-12-19] MED LIST changes: +AMPICILLIN SODIUM 2 GM/NS 100 ML IV ONE; +BENZ-247 PO; -BENZ1TAB84 PO; +CeFAZolin SODIUM 1 GM VIAL ONE; +FentaNYL CITRATE PF 100 MCG/2 ML VIAL IVP PRN; +HYDROmorphone HCL 2 MG/ML SYRINGE IVP PRN; +LEVE-71 PO; -LEVE500T20 PO; +MEPERIDINE-PF 25 MG/ML VIAL IVP PRN; +ONDANSETRON HCL 4 MG/2 ML VIAL ONE; +OXYGEN THERAPY IH SCH; +PROPOFOL 1% 20 ML VIAL IVP ONE; +RINGERS SOLUTION,LACTATED 1,000 ML IV ONE; +ROCURONIUM BROMIDE 10 MG/ML 5 ML VIAL ONE; +SUCCINYLCHOLINE CHLORIDE 20 MG/ML 10 ML VIAL ONE
[2023-12-19 07:42] LABS: PROTHROMBIN TIME 10.5 SEC (9.4-11.6)
[2023-12-19 07:48] LABS: ANION GAP 9 mmol/L (8-16); CALCIUM, TOTAL 9.4 mg/dL (8.8-10.5); CARBON DIOXIDE 29 mmol/L (22-29); CHLORIDE 102 mmol/L (98-107); CREATININE 0.51 mg/dL (0.60-1.30); GLOMERULAR FILTR. RATE CALC > 60 mL/min (>60); GLUCOSE,RANDOM 88 mg/dL (70-110); POTASSIUM 4.2 mmol/L (3.5-5.1); SODIUM SERUM 140 mmol/L (136-145); UREA NITROGEN, BLOOD 8 mg/dL (7-18)
[2023-12-19 07:54] LABS: ALANINE AMINOTRANSFERASE 30 U/L (12-78); ALKALINE PHOSPHATASE 159 U/L (46-116); ASPARTATE AMINOTRANSFERASE 24 U/L (15-37); BILIRUBIN,TOTAL 0.2 mg/dL (0.1-1.0); TOTAL PROTEIN, SERUM 7.9 g/dL (6.4-8.2)
[2023-12-19 08:31] LABS: BASOPHILS % (AUTO) 0.3 % (0.0-2.0); EOSINOPHILS % (AUTO) 4.2 % (1.0-6.0); HEMOGLOBIN 13.1 g/dL (12.0-16.0); LYMPHOCYTES # (AUTO) 1.6 K/uL (1.0-4.8); LYMPHOCYTES % (AUTO) 30.3 % (22.0-44.0); MEAN CORPUSCULAR HGB CONC 33.6 G/dL (31.0-37.0); MEAN CORPUSCULAR VOLUME 92 fL (80-100); MONOCYTES # (AUTO) 0.2 K/uL (0.1-1.0); MONOCYTES % (AUTO) 4.3 % (2.0-9.0); NEUTROPHILS # (AUTO) 3.3 K/uL (1.8-7.7); NEUTROPHILS % (AUTO) 60.9 % (40.0-70.0); PLATELET COUNT (AUTO) 249 K/uL (150-450); RED BLOOD CELL COUNT(AUTO) 4.22 MIL/uL (4.00-5.20); RED CELL DISTRIBUTION WIDTH 13.4 % (11.5-14.5); WHITE BLOOD COUNT (AUTO) 5.4 K/uL (4.5-11.0)
[2023-12-19] MEDS: RINGERS SOLUTION,LACTATED 1,000 ML IV ONE (08:33)
== END | disposition home or self-care (01) ==
LOC: SURGERY 06:08
PROVIDERS: ATTEND Dentist General Practice
DX: K02.9 Dental caries, unspecified (principal); K05.20 Aggressive periodontitis, unspecified; K03.6 Deposits [accretions] on teeth; E10.9 Type 1 diabetes mellitus without complications; K21.9 Gastro-esophageal reflux disease without esophagitis; G80.9 Cerebral palsy, unspecified; Z79.899 Other long term (current) drug therapy; Z98.890 Other specified postprocedural states; Z88.8 Allergy status to other drugs, medicaments and biological substances
CPT/HCPCS: 41899; 71045; 80053; 84703; 85025; 85610; 85730; 36415; 93005; J0290; J2704; J0690; J2405; J3490; J0330; J7120; Z7610

== ENCOUNTER 2024-12-30 10:31 | Inpatient (IN) | payer MEDICAID ==
[~2024-12-30] VITALS: Ht 152.4 cm; Wt 47.7 kg
[~2024-12-30 10:31] MED LIST changes: +ACET167L14 GT; +ALBU0.212 NEB; -AMPICILLIN SODIUM 2 GM/NS 100 ML IV ONE; +BENZ-247 GT; -BENZ-247 PO; +CARB100O10 GT; -CARB100O10 PO; -CeFAZolin SODIUM 1 GM VIAL ONE; +DESM0.1T6 GT; -DESM0.1T6 PO; -FentaNYL CITRATE PF 100 MCG/2 ML VIAL IVP PRN; -HYDROmorphone HCL 2 MG/ML SYRINGE IVP PRN; +LEVE-71 GT; -LEVE-71 PO; +LEVO750T68 GT; -LORA-999 PO; +LORA0.5T20 GT; -LURA20TA PO; +LURA40TA2 GT; -MEPERIDINE-PF 25 MG/ML VIAL IVP PRN; -METO-296 PO; +METO10TA3 GT; -METO10TA3 PO; +OLAN5TAB30 GT; -OLAN5TAB30 PO; -OLAN5TAB52 PO; +OMEP-148 GT; -OMEP20 PO; -OMEP20CA12 PO; -ONDANSETRON HCL 4 MG/2 ML VIAL ONE; -OXYGEN THERAPY IH SCH; -PROPOFOL 1% 20 ML VIAL IVP ONE; -RINGERS SOLUTION,LACTATED 1,000 ML IV ONE; -ROCURONIUM BROMIDE 10 MG/ML 5 ML VIAL ONE; -SUCCINYLCHOLINE CHLORIDE 20 MG/ML 10 ML VIAL ONE
[2024-12-30 17:19] LABS: PLATELET COUNT (AUTO) 299 K/uL (150-450); RED BLOOD CELL COUNT(AUTO) 4.36 MIL/uL (4.00-5.20); RED CELL DISTRIBUTION WIDTH 12.9 % (11.5-14.5); WHITE BLOOD COUNT (AUTO) 9.1 K/uL (4.5-11.0)
[2024-12-30 17:26] LABS: CALCIUM, TOTAL 9.5 mg/dL (8.8-10.5); CREATININE 0.46 mg/dL (0.60-1.30); GLOMERULAR FILTR. RATE CALC > 60 mL/min (>60); GLUCOSE,RANDOM 98 mg/dL (70-110); SODIUM SERUM 142 mmol/L (136-145); UREA NITROGEN, BLOOD 8 mg/dL (7-18)
[2024-12-30] MEDS ORDERED: MAGNESIUM HYDROXIDE SUSPENSION 30 ML UDCUP PO PRN (21:00)
[2024-12-30] MEDS ORDERED: MORPHINE SULFATE 4 MG/ML SYRINGE IVP PRN (21:00)
[2024-12-30] MEDS ORDERED: ACETAMINOPHEN 325 MG TABLET PO PRN (21:00)
[2024-12-30] MEDS ORDERED: HYDROCODONE/ACETAMINOPHEN 5-325 MG TABLET PO PRN (21:00)
[2024-12-30] MEDS ORDERED: ZOLPIDEM TARTRATE 5 MG TABLET PO PRN (21:00)
[2024-12-30] MEDS ORDERED: ONDANSETRON HCL 4 MG/2 ML VIAL IVP PRN (21:00)
[2024-12-30] MEDS: DOCUSATE SODIUM 100 MG CAPSULE PO SCH (21:00)
[2024-12-30 22:28] VITALS: BP 126/92; PULSE 103; RESP 18; TEMP 98.4; O2SAT 99
[2024-12-30] MEDS: HEPARIN SODIUM,PORCINE 5,000 UNITS/ML VIAL SQ SCH (23:35)
[2024-12-31 03:49] VITALS: BP 127/99; PULSE 92; RESP 18; TEMP 97.5; O2SAT 97
[2024-12-31 08:00] VITALS: BP 138/92; PULSE 105; RESP 20; TEMP 98.1; O2SAT 98
[2024-12-31] MEDS: PANTOPRAZOLE SODIUM 40 MG DR TABLET PO SCH (09:00)
[2024-12-31] MEDS ORDERED: SODIUM CHLORIDE 0.9% 500 ML IV ONE (09:56)
[2024-12-31 12:19] LABS: PLATELET COUNT (AUTO) 298 K/uL (150-450); RED BLOOD CELL COUNT(AUTO) 4.20 MIL/uL (4.00-5.20); RED CELL DISTRIBUTION WIDTH 12.9 % (11.5-14.5); WHITE BLOOD COUNT (AUTO) 10.2 K/uL (4.5-11.0)
[2024-12-31 12:31] LABS: CALCIUM, TOTAL 9.2 mg/dL (8.8-10.5); CREATININE 0.49 mg/dL (0.60-1.30); GLOMERULAR FILTR. RATE CALC > 60 mL/min (>60); GLUCOSE,RANDOM 95 mg/dL (70-110); SODIUM SERUM 143 mmol/L (136-145); UREA NITROGEN, BLOOD 10 mg/dL (7-18)
[2024-12-31 16:00] VITALS: BP 147/94; PULSE 98; RESP 19; TEMP 98.8; O2SAT 97
[2024-12-31] MEDS: DEXTROSE 5%-0.45% SODIUM CHL 1,000 ML IV SCH (17:12)
[2024-12-31 19:58] VITALS: BP 143/95; PULSE 88; RESP 19; TEMP 98.6; O2SAT 96
[2025-01-01 04:39] VITALS: BP 144/90; PULSE 89; RESP 19; TEMP 98.2; O2SAT 97
[2025-01-01 08:08] LABS: PLATELET COUNT (AUTO) 263 K/uL (150-450); RED BLOOD CELL COUNT(AUTO) 4.23 MIL/uL (4.00-5.20); RED CELL DISTRIBUTION WIDTH 12.8 % (11.5-14.5); WHITE BLOOD COUNT (AUTO) 9.7 K/uL (4.5-11.0)
[2025-01-01] MEDS: BISACODYL 10 MG RECTAL RECTAL SUPPOSITORY PR PRN (08:13)
[2025-01-01 08:14] LABS: CALCIUM, TOTAL 9.1 mg/dL (8.8-10.5); CREATININE 0.42 mg/dL (0.60-1.30); GLOMERULAR FILTR. RATE CALC > 60 mL/min (>60); GLUCOSE,RANDOM 95 mg/dL (70-110); SODIUM SERUM 143 mmol/L (136-145); UREA NITROGEN, BLOOD 9 mg/dL (7-18)
[2025-01-01 08:30] VITALS: BP 140/94; PULSE 87; RESP 18; TEMP 98.2; O2SAT 98
[2025-01-01] MEDS ORDERED: SODIUM CHLORIDE 0.9% 1,000 ML IV ONE ×2 (09:00→14:00)
[2025-01-01] MEDS ORDERED: SODIUM CHLORIDE 0.9% 1,000 ML IV SCH (09:30)
[2025-01-01 16:57] VITALS: BP 146/92; PULSE 88; RESP 18; TEMP 98; O2SAT 99
[2025-01-01 20:00] VITALS: BP 147/90; PULSE 78; RESP 18; TEMP 98.1; O2SAT 97
[2025-01-02 04:00] VITALS: BP 137/89; PULSE 89; RESP 18; TEMP 97.9; O2SAT 98
[2025-01-02 08:19] LABS: PLATELET COUNT (AUTO) 270 K/uL (150-450); RED BLOOD CELL COUNT(AUTO) 4.32 MIL/uL (4.00-5.20); RED CELL DISTRIBUTION WIDTH 12.8 % (11.5-14.5); WHITE BLOOD COUNT (AUTO) 7.9 K/uL (4.5-11.0)
[2025-01-02 08:34] LABS: CALCIUM, TOTAL 9.4 mg/dL (8.8-10.5); CREATININE 0.42 mg/dL (0.60-1.30); GLOMERULAR FILTR. RATE CALC > 60 mL/min (>60); GLUCOSE,RANDOM 101 mg/dL (70-110); SODIUM SERUM 143 mmol/L (136-145); UREA NITROGEN, BLOOD 9 mg/dL (7-18)
[2025-01-02 08:43] VITALS: BP 139/73; PULSE 74; RESP 18; TEMP 98.6; O2SAT 97
== END 2025-01-02 15:40 | disposition home or self-care (01) | DRG 254 ==
LOC: EMS 10:31 → EDH 20:59 → 6S 22:11
PROVIDERS: ADMIT Internal Medicine; ATTEND Internal Medicine
DX: Z43.1 Encounter for attention to gastrostomy (principal); G40.909 Epilepsy, unspecified, not intractable, without status epilepticus; G80.9 Cerebral palsy, unspecified; Z79.899 Other long term (current) drug therapy; Z88.8 Allergy status to other drugs, medicaments and biological substances
CPT/HCPCS: 80048; 85025; 99285; J0712; J1644; J7040; J7060